=== PATIENT | female | born 1950 | race Caucasian/White ===

== ENCOUNTER 2019-11-22 20:04 | Emergency (ER) | payer MEDICARE, MEDICAID ==
[2019-11-22] MEDS ORDERED: Take Home: Acetaminophen/HYDROcodone 325-5 MG, 5 Tab Pack PO ONE (20:20)
--- NOTE | 2019-11-24 02:35 | EDM.PDOC ---
ED HPI GENERAL MEDICAL PROBLEM - General Chief Complaint: Lower Extremity Injury/Pain Stated Complaint: KNEE Time Seen by Provider: 11/22/19 20:04 Source of Information: Reports: Patient History Limitations: Reports: No Limitations - History of Present Illness INITIAL COMMENTS - FREE TEXT/NARRATIVE: Pt. presents to ER with complaints of non-traumatic R knee pain. Pt. states that she has a history of chronic knee pain in the past. She states that it has been getting worse over the past year and she associates the increased discomfort with her weigh gain. Again, she denies any trauma to the knee. She states that it was particularly bad this AM. She thinks she may have "overdone" it but denies any falls or other trauma. She states that the discomfort is located inferior to the patella. No numbness/ tingling in the distal portion of the extremity. No calf pain, duskiness, or pallor. Onset: Today Onset Date: 11/22/19 Location: Reports: Lower Extremity, Right Quality: Reports: Ache, Burning, Sharp, Stabbing, Throbbing Improves with: Reports: Rest Worsens with: Reports: Movement Context: Reports: Activity Right Knee Pain Score (Numeric/FACES): 7 - Related Data Allergies Allergy/AdvReac Type Severity Reaction Status Date / Time IV contrast Allergy Other Uncoded 11/22/19 20:20 Home Meds: Home Meds Aspirin 81 mg PO DAILY 11/22/19 [History] Furosemide [Lasix] 40 mg PO BID 11/22/19 [History] Lisinopril [Zestril] 20 mg PO DAILY 11/22/19 [History] predniSONE [Prednisone] 2.5 mg PO DAILY 11/22/19 [History] Past Medical History Cardiovascular History: Reports: Hypertension Other Musculoskeletal History: chronic knee pain Social & Family History - Tobacco Use Smoking Status *Q: Current Every Day Smoker Years of Tobacco use: 40 Packs/Tins Daily: 2 ED ROS GENERAL - Review of Systems Review Of Systems: Comprehensive ROS is negative, except as noted in HPI. ED EXAM, GENERAL - Physical Exam Exam: See Below Exam Limited By: No Limitations General Appearance: Alert, WD/WN, No Apparent Distress Extremities: Joint Swelling, Other (R knee is edematous. Pt. reports increased pain with manipulation of the lower leg. No erythema. No warmth. Pt. is obese. Unable to feel any obvious joint effusion. She does have some grading on manipuation of the knee. ) Course - Vital Signs Last Recorded V/S: Last Vital Signs Temp 36.6 C 11/22/19 20:10 Pulse 87 11/22/19 20:10 Resp 20 11/22/19 20:10 BP 190/63 H 11/22/19 20:10 Pulse Ox 97 11/22/19 20:10 - Orders/Labs/Meds Meds: Medications Discontinued Medications Generic Name Dose Route Start Last Admin Trade Name Laury PRN Reason Stop Dose Admin Hydrocodone Bitart/Acetaminophen 2 packet 11/22/19 20:20 11/22/19 20:33 Take Home: Acetam/Hydrocodon 325-5 Mg, 5 Pack PO 11/22/19 20:21 2 packet ONETIME ONE Administration Departure - Departure Time of Disposition: 20:35 Disposition: Home, Self-Care 01 Clinical Impression: Chronic knee pain - Discharge Information Instructions: Knee Pain, Adult Referrals: Gabbi Rosado MD [Primary Care Provider] - Forms: ED Department Discharge Additional Instructions: Follow-up with Dr. Rosado on Sunday for the knee pain. It sounds like you need a referral to orthopedics given the chronic nature of the pain. For now, take norco 5/325mg 1 tablet every 4-6 hours as needed for pain. Rest, ice, and elevation of your knee is helpful as well. Sepsis Event Note - Evaluation Sepsis Screening Result: No Definite Risk - Assessment/Plan Plan: No imaging was performed as there was no trauma and the pain has been present chronically for some time. She would benefit more from an MRI as opposed to radiographs. Follow-up with Dr. Rosado next week Orrum 5/325mg 1 tablet every 4-6 hours as needed for pain. Rest, ice, and elevation of your knee is helpful as well.
== END 2019-11-22 20:35 | disposition home or self-care (01) ==
LOC: VM.ED 20:04
DX: G89.29 Other chronic pain (principal); M25.561 Pain in right knee; F17.210 Nicotine dependence, cigarettes, uncomplicated; Z91.041 Radiographic dye allergy status; Z79.82 Long term (current) use of aspirin; Z79.899 Other long term (current) drug therapy
CPT/HCPCS: 99283; A9270

== ENCOUNTER 2020-02-19 14:34 | Inpatient (IN) | payer MEDICARE, MEDICAID ==
[2020-02-19] MEDS ORDERED: [UNRECOGNIZED DRUG - OTHER] PO PRN (16:05)
[2020-02-19] MEDS ORDERED: oxyCODONE 5 MG Tab PO PRN (16:05)
[2020-02-19] MEDS ORDERED: Ibuprofen 200 MG Tab PO PRN (16:05)
[2020-02-19] MEDS ORDERED: Furosemide 40 MG Tab PO SCH (16:30)
--- NOTE | 2020-02-19 16:36 | CR ---
[id number] RAD/RAD Chest PA or AP 1V EXAM: FRONTAL CHEST INDICATION: HYPOXEMIA. COMPARISON: July 15, 2018 CT. DISCUSSION: Soft tissue attenuation somewhat limits this assessment. The heart is mildly enlarged with early central vascular congestion most consistent with congestive heart failure. No effusions are seen. No focal airspace opacities. IMPRESSION: 1. Findings most consistent with mild congestive heart failure. Kendall Sales MD 02/19/20 [id number] Thank you for allowing us to participate in the care of your patient.
[2020-02-19] MEDS ORDERED: Furosemide 20 MG Tab PO ONE (16:45)
[2020-02-19] MEDS: Albuterol/Ipratropium 3.0-0.5 MG/3 ML Neb Soln NEB SCH ×2 (18:17→22:13)
[2020-02-19] MEDS: Nicotine 21 MG/24 Hr Patch TRDERM SCH (18:19)
[2020-02-19] MEDS: Furosemide 40 MG Tab PO SCH (18:21)
[2020-02-19] MEDS: Aspirin 325 MG Tab.EC PO SCH (19:27)
[2020-02-19] MEDS: Acetaminophen 500 MG Tab PO SCH (19:27)
--- NOTE | 2020-02-19 20:21 | HP ---
CHIEF COMPLAINT: Deconditioning. HISTORY OF PRESENT ILLNESS: The patient is a 70-year-old female who underwent an elective right knee replacement on 02/17/2020 for degenerative changes. Postoperatively, she was noted to have some mild low normal oxygen levels aggravated by her pain medicine. The patient is recommended to be on aspirin for a month for DVT prophylaxis. Apparently with transfer out of the hospital, she was discharged to swing bed, but confirmation had not been accepted here. However, the patient is a patient of mine and did know that she was going to be needing help. She has a difficult time with transitioning because of the pain from her right knee. She otherwise did not have any complications while hospitalized. MEDICATIONS: That she is currently on were prescribed nicotine lozenges, which she did not start, oxycodone 5 mg 1 pill every 4 hours as needed for pain, oxycodone 10 mg 1 every 4 hours for severe pain, Senna Plus 1 pill twice a day, acetaminophen 500 mg 2 pills 4 times a day, Centrum Silver 1 pill daily, furosemide 40 mg 1 pill a day, ibuprofen 200 mg every 4 hours as needed, lisinopril 20 mg 1 pill daily, Tylenol Cold and Flu 5/10/200/325 two tablets every 4 hours as needed. ALLERGIES: Contrast dye as well as seasonal allergies. PAST MEDICAL HISTORY: She has had hypertension, bilateral carotid artery stenosis, chronic allergic rhinitis. She has had hypertension. She has myasthenia gravis. She has had ptosis of her right eyelid. She has had COPD, poor dentition. She has retention cyst to her nasal cavity. She has had an elevated alkaline phosphatase. Osteoarthritis of both knees. She has had osteopenia, hyperglycemia, stress incontinence, grade 1 diastolic dysfunction, chronic right knee pain. Last echocardiogram was on 06/16/2019, which showed ejection fraction of 65%, grade 1 diastolic dysfunction. She has had depression after her son's in 2009. She has had overweight. PAST SURGICAL HISTORY: She has had an appendectomy, cholecystectomy, left shoulder repair, and right knee replacement. FAMILY MEDICAL HISTORY: Aunt does have paranoid schizophrenia. Mother has had dementia. Mother has had type 2 diabetes mellitus. Mother has had CHF. She has had kidney disease, cataracts, diabetes. Father had asthma and cataracts. Brother has had type 2 diabetes mellitus, myasthenia gravis, cataracts. Another brother with diabetes, hypertension, substance abuse. SOCIAL HISTORY: She is . She has a significant other. She works at the [employer]. She smokes a pack and a half a day of cigarettes. She does not consume alcohol. [place], [place]. 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 REVIEW OF SYSTEMS: The patient feels a little bit short of breath. She does have no chest pain. No sore throat. Bowels tend to work about every 4 days. No burning with urination. Her incision on her right knee is dressed with Aquacel dressing. No numbness or tingling of her feet. PHYSICAL EXAMINATION: Vital Signs: Temperature is 36.7, pulse is 102, blood pressure is 127/83, respirations 20, sats were 87% on 1 L. Skin: Somewhat dusky in appearance. HEENT: Her pupils equal and reactive to light. Pharynx: No injection. Neck: No anterior cervical adenopathy. HEART: Regular rate and rhythm. Lungs: Have diminished breath sounds. Abdomen: Obese, slightly distended. Extremities: Right knee is dressed with a dressing from surgery. She has minimal bruising around the edges. No erythema noted of her leg. No erythema of her foot or swelling of her foot. Neurologic: She is alert, questionably slightly confused. Skin; no bruising, pale. IMPRESSION: 1. Post right knee replacement. 2. Deconditioning due to knee surgery. 3. Hypoxemia. 4. Chronic obstructive pulmonary disease. 5. Hypertension. 6. Myasthenia gravis. 7. Degenerative joint disease of her left knee. 8. CHF, mild chronic diastolic. PLAN: The patient will be placed on swing bed for therapies. We will use oxycodone for p.r.n. pain control and scheduled Tylenol. She will be placed on Nicoderm patch to help with smoking cessation. Will offer her either DuoNebs or albuterol depending on cost coverage, which is better for the patient. Do anticipate her to be able to be discharged home hopefully within a week's time when she is up ambulating quite well. The patient is code level 1 status. For DVT prophylaxis, she is on a full-strength aspirin twice a day, so we will not place her on Lovenox or heparin. GM02/19/2020 16:16:40 MODL: 02/19/2020 19:58:25 /[id number] MTDD
[2020-02-19] MEDS: oxyCODONE 5 MG Tab PO PRN (22:23)
[2020-02-20] MEDS: Albuterol/Ipratropium 3.0-0.5 MG/3 ML Neb Soln NEB SCH ×3 (03:33→11:16)
[2020-02-20 07:14] LABS: ANION GAP 12.1 mmol/L (10-20); CHLORIDE,CL 104 mmol/L (98-107); SODIUM,NA 141 mmol/L (136-145)
[2020-02-20] MEDS ORDERED: Lisinopril 20 MG Tab PO SCH (08:00)
[2020-02-20] MEDS ORDERED: Potassium Chloride 10 MEQ Tab.ER PO SCH (08:30)
[2020-02-20] MEDS: Acetaminophen 500 MG Tab PO SCH ×4 (08:58→20:30)
[2020-02-20] MEDS: Multivitamins with Iron/Calcium/Folic Acid/Minerals Tab PO SCH (08:58)
[2020-02-20] MEDS: Aspirin 325 MG Tab.EC PO SCH ×2 (08:58→20:30)
[2020-02-20] MEDS: Lisinopril 20 MG Tab PO SCH (09:06)
[2020-02-20] MEDS: Furosemide 40 MG Tab PO SCH ×2 (09:06→16:52)
[2020-02-20] MEDS: Nicotine 21 MG/24 Hr Patch TRDERM SCH (09:11)
--- NOTE | 2020-02-20 09:11 | PN ---
Progress Note for HANNAH MCFARLAND Date: 02/20/2020 Room #: VM.202 This is the patient's second swing bed day of coming after a post knee surgery with deconditioning, pain. She is noted to be hypoxic when she came. Chest x- ray did show some left pleural effusion. She was maintained just on her regular Lasix. Additional Lasix was not given last night as it was not clear as to when she had had her last Lasix. This morning, she has not been up out of bed yet. She says her pain has been controlled with her oral meds. She comments that she believes that the DuoNebs may help her a little bit. OBJECTIVE: Vital Signs: Her weight has not been done today. Temperature is 36.5, pulse 73, blood pressure is 147/52, respiratory rate is 18, sats are 90% on 2 L. Heart: Regular rate and rhythm. Lungs: Some rare wheezes on left base. Abdomen: Soft. Extremities: Right knee is dressed with no peripheral edema. LABORATORY DATA: Today shows her hemoglobin is 11.7. Potassium is low at 3.1, sodium is 141, creatinine 0.8, BUN 11, GFR greater than 60, glucose 101, proBNP 448. Urinalysis came back normal other than 10-20 red blood cells. COVID test from [facility] came back negative this morning that was done yesterday. IMPRESSION: 1. Deconditioning post knee surgery. 2. Hypoxemia. 3. Congestive heart failure exacerbation. 4. Hypokalemia. 5. Chronic obstructive pulmonary disease. 6. Hypertension. 7. Anemia mild. PLAN: We will continue her same dose of Lasix right now. We will add potassium replacement. We will recheck a BMP tomorrow. She will receive physical therapy today. We did start DuoNebs yesterday to help with improved lung function and anticipate her to have PT/OT, hopefully a short term stay. Hopefully, anticipate weaning her off oxygen and to be able to go home early next week. GM02/20/2020 08:26:46 MODL: 02/20/2020 08:45:04 /[id number] BERNARDA
[2020-02-20] MEDS: COMBIVENT RESPIMAT INH SCH ×3 (12:32→20:30)
[2020-02-20] MEDS: oxyCODONE 5 MG Tab PO PRN (20:32)
[2020-02-21] MEDS: oxyCODONE 5 MG Tab PO PRN (01:07)
[2020-02-21 07:57] LABS: CHLORIDE,CL 102 mmol/L (98-107); SODIUM,NA 140 mmol/L (136-145)
[2020-02-21 07:58] LABS: ANION GAP 14.3 mmol/L (10-20)
[2020-02-21] MEDS: COMBIVENT RESPIMAT INH SCH ×4 (09:13→20:47)
[2020-02-21] MEDS: Furosemide 40 MG Tab PO SCH ×2 (09:14→15:59)
[2020-02-21] MEDS: Lisinopril 20 MG Tab PO SCH (09:15)
[2020-02-21] MEDS: Potassium Chloride 10 MEQ Tab.ER**PT OWN PO SCH (09:16)
[2020-02-21] MEDS: Multivitamins with Iron/Calcium/Folic Acid/Minerals Tab PO SCH (09:16)
[2020-02-21] MEDS: Aspirin 325 MG Tab.EC PO SCH ×2 (09:17→20:45)
[2020-02-21] MEDS: Acetaminophen 500 MG Tab PO SCH ×4 (09:17→20:45)
--- NOTE | 2020-02-21 10:28 | PCM.PN ---
- General Info Date of Service: 02/21/20 Subjective Update: Subjective: Patient states that her knee is somewhat painful but her pain is under control. She has no other complaints - Patient Data Vitals - Most Recent: Last Vital Signs Temp 98.2 F 02/21/20 05:17 Pulse 84 02/21/20 05:17 Resp 17 02/21/20 05:17 BP 162/60 H 02/21/20 09:15 Pulse Ox 93 L 02/21/20 05:17 Weight - Most Recent: 196 lb 12.8 oz I&O - Last 24 Hours: Intake & Output 02/20/20 02/21/20 02/21/20 22:59 06:59 14:59 Intake Total 120 400 480 Output Total 200 0 Balance -80 400 480 Lab Results Last 24 Hours: Laboratory Results - last 24 hr 02/21/20 Range/Units 07:36 Sodium 140 (136-145) mmol/L Potassium 3.3 L (3.5-5.1) mmol/L Chloride 102 (98-107) mmol/L Carbon Dioxide 27 (21-32) mmol/L Anion Gap 14.3 (10-20) mmol/L BUN 12 (7-18) mg/dL Creatinine 0.8 (0.55-1.02) mg/dL Est Cr Clr Drug Dosing 47.67 mL/min Estimated GFR (MDRD) > 60 Glucose 108 H (74-106) mg/dL Calcium 8.9 (8.5-10.1) mg/dL Med Orders - Current: Current Medications Acetaminophen (Tylenol Extra Strength) 1,000 mg PO QID [facility] Last Admin: 02/21/20 09:17 Dose: 1,000 mg Aspirin (Aspirin) 81 mg PO DAILY [facility] Aspirin (Ecotrin) 325 mg PO BID [facility] Last Admin: 02/21/20 09:17 Dose: 325 mg Furosemide (Lasix) 40 mg PO BIDDIURETIC [facility] Last Admin: 02/21/20 09:14 Dose: 40 mg Ibuprofen (Motrin) 200 mg PO Q4HR PRN PRN Reason: Pain Lisinopril (Prinivil) 20 mg PO DAILY [facility] Last Admin: 02/21/20 09:15 Dose: 20 mg Multivitamins/Minerals (Thera M Plus) 1 tab PO DAILY [facility] Last Admin: 02/21/20 09:16 Dose: 1 tab Combivent Respimat (InhalerOwn Med) 0 each INH QID [facility] Last Admin: 02/21/20 09:13 Dose: 1 each Oxycodone HCl (Oxycodone) 5 mg PO Q4HR PRN PRN Reason: Pain (moderate 4-6) Last Admin: 02/21/20 01:07 Dose: 5 mg Potassium Chloride (Klor-Con 10) 10 meq PO DAILY [facility] Last Admin: 02/21/20 09:16 Dose: 10 meq Senna/Docusate Sodium (Senna Plus) 1 tab PO BID [facility] Last Admin: 02/21/20 09:17 Dose: 1 tab Discontinued Medications Albuterol/Ipratropium (Duoneb 3.0-0.5 Mg/3 Ml) 3 ml NEB Q4HRRT [facility] Last Admin: 02/20/20 11:16 Dose: Not Given Furosemide (Lasix) 40 mg PO BIDDIURETIC [facility] Last Admin: 02/19/20 18:56 Dose: Not Given Furosemide (Lasix) 20 mg PO ONETIME ONE Stop: 02/19/20 16:46 Last Admin: 02/19/20 18:05 Dose: Not Given Lisinopril (Prinivil) 20 mg PO DAILY [facility] Nicotine (Habitrol) 21 mg TRDERM DAILY [facility] Last Admin: 02/20/20 09:11 Dose: Not Given Non-Formulary Medication (Phenylephrine/Dm/Acetaminop/Gg [Tylenol Cold-Flu Severe Caplet]) 2 tab PO Q4HR PRN PRN Reason: Allergies Oxycodone HCl (Oxycodone) 5 mg PO Q4HR PRN PRN Reason: Pain (moderate 4-6) Potassium Chloride (Klor-Con 10) 10 meq PO DAILY [facility] Last Admin: 02/20/20 08:58 Dose: 10 meq - Exam General: Alert, Oriented, Cooperative Lungs: Clear to Auscultation, Other (acCording to nurse, O2 sat 95% on room air) Extremities: Other (Left without edema . Right knee incision w/o induration, pus redness) Sepsis Event Note - Evaluation Sepsis Screening Result: No Definite Risk - Focused Exam Vital Signs: Vital Signs Temp Pulse Resp BP BP Pulse Ox 02/21/20 09:15 162/60 H 02/21/20 05:17 98.2 F 84 17 162/60 H 93 L Date Exam was Performed: 02/21/20 Time Exam was Performed: 10:22 - Problem List Review Problem List Initiated/Reviewed/Updated: Yes - Assessment Assessment:: 1. Hypoxia: resolving 2. Hypokalemia: resolving: continue K + po 3. HTN: Has been consistently elevated 148-160 systolic: add amlodipne 5 mg daily 4. Pain control: pain uner controll: d/c Motrin as pt is already on ecotrin bid
[2020-02-21] MEDS: amLODIPine 5 MG Tab PO SCH (11:47)
[2020-02-22] MEDS: Lisinopril 20 MG Tab PO SCH (08:07)
[2020-02-22] MEDS: Furosemide 40 MG Tab PO SCH ×2 (08:07→15:31)
[2020-02-22] MEDS: amLODIPine 5 MG Tab PO SCH (08:07)
[2020-02-22] MEDS: COMBIVENT RESPIMAT INH SCH ×3 (08:07→15:31)
[2020-02-22] MEDS: Potassium Chloride 10 MEQ Tab.ER**PT OWN PO SCH (08:07)
[2020-02-22] MEDS: Aspirin 325 MG Tab.EC PO SCH ×2 (08:08→20:38)
[2020-02-22] MEDS: Acetaminophen 500 MG Tab PO SCH ×4 (08:08→20:37)
[2020-02-22] MEDS: Multivitamins with Iron/Calcium/Folic Acid/Minerals Tab PO SCH (08:08)
[2020-02-22] MEDS ORDERED: Potassium Chloride 10 MEQ Tab.ER PO ONE (10:46)
--- NOTE | 2020-02-22 11:04 | PCM.SN.2 ---
- Free Text/Narrative Note: S: Pt has no complaints; She is noted to have frequent coughing but she says this is chronic. She has a little clear sputum now suince surgery O: Pt in NAD Lungs clear BP 155/60 no edema Cor: s1s2 normal w/o rubs,murmurs or gallops Potassium 3.1 IMP 1.Hypokalemia: from diuretics- extra dose of K today, check K and Mg in AM 2.COPD: Pt enc to stay off cigarettes 3. HTN: still not at target, received first dose of amlodipine today w/o difficulty
[2020-02-23] MEDS: COMBIVENT RESPIMAT INH SCH ×5 (07:17→19:27)
[2020-02-23] MEDS ORDERED: Potassium Chloride 10 MEQ Tab.ER PO ONE (08:14)
[2020-02-23] MEDS: Potassium Chloride 10 MEQ Tab.ER**PT OWN PO SCH (08:37)
[2020-02-23] MEDS: Acetaminophen 500 MG Tab PO SCH ×4 (09:02→19:27)
[2020-02-23] MEDS: amLODIPine 5 MG Tab PO SCH (09:03)
[2020-02-23] MEDS: Aspirin 325 MG Tab.EC PO SCH ×2 (09:03→19:27)
[2020-02-23] MEDS: Multivitamins with Iron/Calcium/Folic Acid/Minerals Tab PO SCH (09:03)
[2020-02-23] MEDS: POTASSIUM CHLORIDE 10 MEQ PO SCH (09:04)
[2020-02-23] MEDS: Furosemide 40 MG Tab PO SCH ×2 (09:05→16:31)
[2020-02-23] MEDS: Lisinopril 20 MG Tab PO SCH (09:05)
--- NOTE | 2020-02-23 09:09 | CR ---
[id number] RAD/RAD Chest PA And Lateral EXAM: RAD Chest PA And Lateral INDICATION: CONGESTIVE HEART FAILURE FOLLOW-UP. COMPARISON: February 19, 2020. DISCUSSION: Cardiomediastinal silhouette is normal in size and contour. No infiltrate, effusion, pneumothorax, or edema. IMPRESSION: No acute cardiopulmonary abnormality. Matt Escoto DO 02/23/20 0908 Thank you for allowing us to participate in the care of your patient.
--- NOTE | 2020-02-23 12:38 | PN ---
Progress Note for HANNAH MCFARLAND Date: 02/23/2020 Room #: VM.202 SUBJECTIVE: This is the patient's 5th swing bed day of recovering from her knee surgery. Her hypoxemia gotten much better as well as her low potassiums have been improving. She has worked with therapy 2 days now and is waiting to get stronger. She has not needed as the oxygen like she had been. OBJECTIVE: Vital Signs: Her weight 87.8 kg which is down 5 kg from admission, her blood pressure is 162/73, pulse is 98, sats are 95% on room air, and respiratory rate 18. Heart: Regular rate. Lungs: Have rare inspiratory crackle on right base. Abdomen: Soft. Extremities: Lower extremities, no edema. Right knee is wrapped with surgical dressing. LABORATORY DATA: Shows her potassium was up to 3.4 yesterday. Her proBNP on the was 448. Hemoglobin had been 11.7 on 02/19. IMPRESSION: 1. Deconditioning post right knee surgery. 2. Hypokalemia, improving. 3. Hypertension, slightly improving. 4. Hypoxemia, improving. 5. Chronic obstructive pulmonary disease. 6. Congestive heart failure exacerbation. PLAN: We will have the patient work with therapies. Today, we will increase her oral potassium to 20 mEq daily. We will repeat lab work on the as it is not certain as to when she will be ready to go home. We will continue the Combivent and Respimat. She had just been placed on the Norvas for blood pressure control, so we will continue that same dose even though she is not at optimal control yet. GM02/23/2020 08:20:05 MODL: 02/23/2020 09:15:43 /[id number] [email or web address]
[2020-02-24] MEDS: oxyCODONE 5 MG Tab PO PRN (01:33)
[2020-02-24] MEDS: Acetaminophen 500 MG Tab PO SCH ×4 (08:05→20:44)
[2020-02-24] MEDS: Multivitamins with Iron/Calcium/Folic Acid/Minerals Tab PO SCH (08:09)
[2020-02-24] MEDS: Aspirin 325 MG Tab.EC PO SCH ×2 (08:09→20:44)
[2020-02-24] MEDS: Lisinopril 20 MG Tab PO SCH (08:10)
[2020-02-24] MEDS: Furosemide 40 MG Tab PO SCH ×2 (08:10→17:44)
[2020-02-24] MEDS: POTASSIUM CHLORIDE 10 MEQ PO SCH (08:11)
[2020-02-24] MEDS: amLODIPine 5 MG Tab (OWN SUPPLY) PO SCH (08:11)
[2020-02-24] MEDS: COMBIVENT RESPIMAT INH SCH ×4 (08:12→20:44)
[2020-02-24 13:44] LABS: CHLORIDE,CL 103 mmol/L (98-107); SODIUM,NA 140 mmol/L (136-145)
[2020-02-24 13:49] LABS: ANION GAP 13.6 mmol/L (10-20)
--- NOTE | 2020-02-24 19:49 | PN ---
Progress Note for HANNAH MCFARLAND Date: 02/24/2020 Room #: VM.202 SUBJECTIVE: The patient is progressing nicely with physical therapy and is eager for discharge home tomorrow. She does not want home health services. She did have some pain during the night and did require oxycodone to help with that discomfort. OBJECTIVE: Vital Signs: Her vital signs show that her weight today is 91.5, which is up 3 kg from the other day approximately. Her blood pressure is 150/72, pulse 91, saturations are 93% on room air, respiratory rate 18. HEART: Regular rate and rhythm. LUNGS: Clear to auscultation. ABDOMEN: Soft. EXTREMITIES: Right lower leg has no swelling. Her knee has dressing on it. LABORATORY DATA: Her lab today came back with her white blood cell count 11.1, hemoglobin 12.6. Sodium 140, potassium 3.6, creatinine 0.9, GFR greater than 60. Glucose 121, nonfasting. ProBNP 83. IMPRESSION: 1. Deconditioning status post right knee surgery. 2. Hypertension. 3. Anemia, improved. 4. Hypoxemia, improved. 5. Chronic obstructive pulmonary disease. 6. Hypokalemia. PLAN: The patient will have a plan set up for discharge for tomorrow. I am gone, so I will make arrangements today. Please refer to discharge summary for discharge directions. GM02/24/2020 17:21:07 MODL: 02/24/2020 17:47:05 /[id number]
--- NOTE | 2020-02-25 00:35 | DISCH ---
PRIMARY DIAGNOSES: 1. Deconditioning post right knee replacement surgery. 2. Hypokalemia. 3. Hypertension. 4. Hypoxemia, which is improved. 5. Chronic obstructive pulmonary disease. 6. Congestive heart failure, chronic with mild exacerbation. 7. Myasthenia gravis. 8. Tobacco use disorder. SUMMARY OF ADMIT H AND P: The patient is a 70-year-old female who underwent elective right knee surgery at [facility] on 02/17/2020. She was discharged home on 02/19/2020. However, she was not able to manage at home, so arrangements were made for her to come to swing bed that afternoon. By the time she got here, she was noted to be quite hypoxic with her sats around 87% on 1 L, and she was having fairly significant pain. Her knee had a dressing on it. It was not swollen. She was placed on aspirin 325 b.i.d. for DVT prophylaxis for a month. SUMMARY OF HOSPITAL COURSE: She had lab work done on 02/19/2020 to do a urine, which was normal other than 10-20 red blood cells. Lab work on 02/20/2020 showed her potassium was 3.1, sodium 141, creatinine 0.8, GFR greater than 60. ProBNP elevated at 448. Hemoglobin 11.9, white blood cell count 9.9. The patient was resumed on her usual diuretics and she was given oral potassium replacement. Chest x-ray did show some pleural effusion on the left base. The patient received physical therapy and occupational therapy. It was noted that her potassium slowly improved to 3.3 and was back down to 3.1, so her oral potassium had to be increased. To improve her oxygen saturations, she was started initially on DuoNebs and then switched over to a Combivent Respimat. She declined wanting to have any nicotine replacement system while she was in the hospital. The patient's magnesium level was checked. It was normal at 2.0 on 02/23/2020. By 02/24/2020, her hemoglobin was up to 12.6, white blood cell count 11.1, platelets 309, neutrophils 50, bands 1, lymphocytes 41. Sodium 140, potassium 3.6, creatinine 0.9, GFR greater than 60, glucose 121. ProBNP was 83. A chest x-ray was repeated on 02/23/2020, which showed resolution of pleural effusions. A [id number] exam was done today on 02/24/2020 for the patient for need for home health. The patient is homebound due to knee surgery with need for walker. She cannot walk further than 20 feet without severe exhaustion. She would depend on others for transportation to come to the clinic. The patient is a fall risk. The patient will need to have nursing to assess her blood pressure as well as physical therapy and occupational therapy. I will be the one monitoring her progress with home health. The patient selects [facility] for Services. MEDICATIONS AT DISCHARGE: Aspirin 81 mg 1 pill daily, lisinopril 20 mg 1 pill daily, furosemide 40 mg 1 p.o. b.i.d., aspirin 325 one p.o. b.i.d. I believe for a month, Tylenol 1000 mg 4 times a day, oxycodone 5 mg every 4 hours p.r.n., Senna Plus 1 pill twice a day, ibuprofen 200 mg every 4 hours as needed, multivitamin 1 pill daily, her Tylenol Cold and Flu capsule 2 capsules every 4 hours as needed, amlodipine 5 mg 1 pill daily, potassium chloride 10 mEq 2 pills daily, Combivent Respimat 1 puff 4 times a day. PLAN: The patient has a current Aquacel dressing on her knee that was placed on 02/24/2020, which should stay on for 7 days, so can be changed at her ortho appointment on 03/02/2020. The patient will follow up to see me in the clinic in 3 weeks' time. She was offered referral to [place] [facility]. She declined that. She was encouraged not to resume smoking once going home. The patient is not felt to need home oxygen. However, that will be something that the home health nurses can also help monitor as well as her weights for her CHF. To note at discharge, the patient is code level 1 status. Activity per recommendations from Physical Therapy as well as Orthopedic Surgery. She will be using a walker initially at discharge home. GM02/24/2020 17:28:27 MODL: 02/25/2020 00:11:37 /[id number]
[2020-02-25] MEDS: Lisinopril 20 MG Tab PO SCH (08:33)
[2020-02-25] MEDS: Acetaminophen 500 MG Tab PO SCH (08:33)
[2020-02-25] MEDS: Furosemide 40 MG Tab PO SCH (08:33)
[2020-02-25] MEDS: Aspirin 325 MG Tab.EC PO SCH (08:33)
[2020-02-25] MEDS: POTASSIUM CHLORIDE 10 MEQ PO SCH (08:33)
[2020-02-25] MEDS: Multivitamins with Iron/Calcium/Folic Acid/Minerals Tab PO SCH (08:33)
[2020-02-25] MEDS: amLODIPine 5 MG Tab (OWN SUPPLY) PO SCH (08:34)
[2020-02-25] MEDS: COMBIVENT RESPIMAT INH SCH (10:07)
[2020-03-20] MEDS ORDERED: Aspirin 81 MG Tab.Chew PO SCH (08:00)
== END 2020-02-25 10:15 | disposition home health service (06) | DRG 559 ==
LOC: VM.MS 15:20
PROVIDERS: ADMIT Family Medicine; ATTEND Family Medicine
DX: Z47.1 Aftercare following joint replacement surgery (principal); I50.33 Acute on chronic diastolic (congestive) heart failure; Z96.651 Presence of right artificial knee joint; E87.6 Hypokalemia; J44.9 Chronic obstructive pulmonary disease, unspecified; E05.00 Thyrotoxicosis with diffuse goiter without thyrotoxic crisis or storm; F32.9 Major depressive disorder, single episode, unspecified; D64.9 Anemia, unspecified; Z91.041 Radiographic dye allergy status; Z90.49 Acquired absence of other specified parts of digestive tract
CPT/HCPCS: 36415; 71045; 71046; 80048; 81001; 83735; 83880; 84132; 85025; 94640; 97110-GP; 97116-GP; 97161-GP; 97165-GO; 97530-GP; 97535-GO; A9270-GY; J7620-GY

== ENCOUNTER 2020-12-25 11:41 | Inpatient (IN) | payer MEDICAID, MEDICARE ==
[2020-12-25] MEDS ORDERED: Cyclobenzaprine 10 MG Tab PO PRN (12:40)
[2020-12-25] MEDS ORDERED: ALBUTEROL INH PRN (12:41)
[2020-12-25] MEDS ORDERED: [UNRECOGNIZED DRUG - OTHER] PO PRN (12:41)
[2020-12-25] MEDS ORDERED: Acetaminophen/HYDROcodone 325-5 MG Tab PO PRN (12:41)
[2020-12-25] MEDS ORDERED: Menthol/Methyl Salicylate 85 GM Tube TOP PRN (12:41)
[2020-12-25] MEDS ORDERED: IPRATROPIUM INH PRN (12:41)
--- NOTE | 2020-12-25 14:47 | HP ---
CHIEF COMPLAINT: A left knee replacement. HISTORY OF PRESENT ILLNESS: This is a 70-year-old female who went in and had her left knee electively replaced on the and is ready for discharge home, however, is unable to complete ADLs, living independently, so is admitted for swing bed cares. The patient had an uneventful postoperative course. She has not had a bowel movement yet, but upon arriving to [place], she had severe cramps and spasms in her left calf and the left thigh. The patient is on narcotic pain pills but had not tried any muscle relaxants. ALLERGIES: Her allergies are statins, pollens, and IV contrast. MEDICATIONS: Her current medication list from discharge is reviewed. She is on 325 b.i.d. of aspirin for 1 month, then 81 mg daily. She is on Tylenol for pain. Combivent inhaler, docusate 100 b.i.d., furosemide 20 every 48 hours, hydrocodone 1 to 2 q.6 hours p.r.n. for pain, lisinopril 20 mg daily, Icy Hot, and multivitamin. PAST MEDICAL HISTORY: Includes diastolic heart failure, essential hypertension, COPD, obesity, osteoarthritis with a previous right knee replacement, myasthenia gravis in remission, chronic allergic rhinitis, mixed urinary incontinence, emphysema, and peripheral vascular disease with carotid artery stenosis but no history of stroke. PAST SURGICAL HISTORY: Again, the patient has had that right knee replaced, appendectomy, cholecystectomy, and shoulder surgery. FAMILY HISTORY: She had dementia, diabetes, heart disease, and kidney disease in her mother. Both parents are . Her brother is listed also to have diabetes and hypertension. SOCIAL HISTORY: She is . She lives at home independently. She smokes. No alcohol. REVIEW OF SYSTEMS: General: No fever or chills. No weight changes. HEENT: No trouble swallowing. Cardiac: No chest pain. No palpitations. Respiratory: No cough, no shortness of breath, although it was listed, she had some lower O2 saturations like in the 80s in [place] after surgery. Gastrointestinal: No abdominal pain, nausea, vomiting, or diarrhea. Genitourinary: No dysuria. Mental Status and Neurologic: No confusion. Otherwise, all systems reviewed and found to be negative unless otherwise stated. PHYSICAL EXAMINATION: Vital Signs: Temperature 99.7, pulse 97, blood pressure 147/106, respiratory rate 20, and O2 of 92 on room air. General: She is in no acute distress. Heart: Regular rate and rhythm. S1, S2 without murmur. Lungs: Lung sounds are clear to auscultation bilaterally without crackles or wheezes. Abdomen: Has positive bowel sounds. Soft, nondistended, and nontender. Extremities: Warm and dry. She does have edema over that left leg. The entire leg is sore, slight spasm noted in the thigh and then in the lower calf area. There is some redness. However, when I examine her foot too, there is still some orange dye left over from surgery. Her leg is warm. She has 2+ dorsal pedis pulses. She has good range of motion. She has incision in place with just slight drainage. I did not undo her entire dressing. Mental Status: She is alert and orientated x3. LABORATORY WORK: Reviewed from today. Hemoglobin 12.1 and glucose 135, otherwise, her electrolytes and kidney function were all normal. COVID negative. ASSESSMENT: 1. Postoperative day 2 from a left knee replacement. 2. Essential hypertension, currently elevated on admission but likely due to pain. 3. Left leg pain. She has had muscle spasms. It just started upon arrival. She did have some extensive physical therapy work this morning. 4. Smoking. Nicotine patch available if needed. 5. Chronic diastolic heart failure. She is on Lasix. 6. Emphysema. We will encourage incentive spirometry. 7. Obesity. 8. Myasthenia gravis, in remission. PLAN: At this point, the patient is to continue on swing bed cares. We will get her up and working with therapies on Sunday. We will hold off on any further lab work, but if spasms continue, I will repeat electrolytes and magnesium. I will empirically put her on magnesium, and I will add Flexeril to her pain regimen. For DVT prophylaxis, she is on aspirin. She is a code level 1. MKA: 12/25/2020 13:49:39 MODL: 12/25/2020 14:41:53 /[id number]
[2020-12-25] MEDS: Magnesium Oxide 400 MG Tab PO SCH ×2 (17:26→20:12)
[2020-12-25] MEDS: Acetaminophen/HYDROcodone 325-5 MG Tab **OWN MED PO PRN ×2 (17:51→21:28)
[2020-12-25] MEDS: Acetaminophen 500 MG Tab PO SCH (20:11)
[2020-12-25] MEDS: Docusate Sodium 100 MG Cap PO SCH (20:11)
[2020-12-25] MEDS: Aspirin 325 MG Tab.EC PO SCH (20:12)
[2020-12-26] MEDS: Acetaminophen/HYDROcodone 325-5 MG Tab **OWN MED PO PRN (07:40)
[2020-12-26] MEDS: Magnesium Oxide 400 MG Tab PO SCH (07:41)
[2020-12-26] MEDS: Docusate Sodium 100 MG Cap PO SCH (07:41)
[2020-12-26] MEDS: Acetaminophen 500 MG Tab PO SCH (07:41)
[2020-12-26] MEDS: Aspirin 325 MG Tab.EC PO SCH (07:41)
[2020-12-26] MEDS ORDERED: Multivitamins with Iron/Calcium/Folic Acid/Minerals Tab PO SCH (08:00)
[2020-12-26] MEDS ORDERED: Lisinopril 20 MG Tab **OWN MED PO SCH (08:00)
[2020-12-26] MEDS ORDERED: Furosemide 40 MG Tab PO SCH (10:45)
[2020-12-27] MEDS ORDERED: Furosemide 40 MG Tab **OWN MED PO SCH (08:00)
--- OUTSIDE RECORDS SUMMARY | 2020-12-27 09:21 | XMSREPORT ---
:1950 Author Organization [facility] s Address [address] [place] [address] [address] [place] [address] Care Team Providers Name Role Phone DO Jesse Primary Care Provider DO Jesse Attributed Provider Reason for Visit Auth/Cert (Routine) Status Reason Specialty Diagnoses / Referred By Referred To Procedures Contact Contact Continuity of Care Diagnoses Unilateral primary osteoarthritis, left knee Mitch Hernandez Procedures ARTHROPLASTY KNEE CONDYLE & PLATEAU MEDIAL & [place] [address] [place] [address] Encounter Details Date Type Department Care Team Description 12/24/2020 - Hospital Encounter [facility] Mitch Hernandez Arthr itis of knee, 12/25/2020 [place] [place] Barnes [place] left [address] [place] [address] [place] [address] [phone] Allergies Active Allergy Reactions Severity Noted Date Comments Diagnostic X-Ray Other (Specify in 06/07/2018 Daniels w arm heart racing Materials Comments) Seasonal Other (Specify in 06/07/2018 Itchy eyes , nasal Comments) drainage Hmg-Coa-R Inhibitors Other (Specify in 04/30/2020 [place] [facility] Myasthenia gravis Comments) so this is contraindicated . documented as of this encounter (statuses as of 12/25/2020) Medications Medication Sig Dispensed Refills Start End Date Status Date NDCTNSxtytdcl-YL-u Take 2 tablets 0 Active uaiFENesin-acetami by mouth Every 8 nophen (TYLENOL 4 hours as COLD/FLU SEVERE) needed for 5-93-435-325 MG other (Specify) tabletIndications: (allergies) Chronic allergic rhinitis Multiple Take 1 tablet 0 Active Vitamins-Minerals by mouth 1 time (CENTRUM SILVER per day ULTRA WOMENS PO) acetaminophen Take 2 tablets 100 tablet 0 Active (TYLENOL) 500 mg (1,000 mg) by 0 tabletIndications: mouth 4 times a Status post total day right knee replacement Menthol-Methyl Apply topically 0 Active Salicylate (ARTHRITIS HOT) 10-15 % CREA HYDROcodone-acetam Take 1-2 20 tablet 0 A ctive inophen (NORCO) tablets by 1 5-325 mg mouth every 6 tabletIndications: hours as needed Status post total for moderate left knee pain or severe replacement pain aspirin 325 MG Take 1 tablet 60 tablet 0 01/25/20 A ctive enteric coated (325 mg) by 1 21 tabletIndications: mouth 2 times a Status post total day left knee replacement aspirin 81 mg Take 1 tablet 30 tablet 0 Ac tive enteric coated (81 mg) by 1 tabletIndications: mouth 1 time Bilateral carotid per day Start artery stenosis after completing one month course of twice daily aspirin 325 mg albuterol-ipratrop Inhale 1 puff 4 g 0 Active ium (COMBIVENT orally Every 4 1 RESPIMAT) 20-100 hours as needed MCG/ACT for shortness inhalerIndications of breath or : Panlobular wheezing emphysema (HCC) lisinopril Take 1 tablet 90 tablet 0 Activ e (PRINIVIL, (20 mg) by 1 ZESTRIL) 20 mg mouth 1 time tabletIndications: per day Essential hypertension furosemide (LASIX) Take 0.5 45 tablet 4 12/31/19 A ctive 40 mg tablets (20 mg) 1 22 tabletIndications: by mouth Every Edema, peripheral other day docusate sodium Take 1 capsule 60 capsule 0 01/25/20 Active (COLACE) 100 MG (100 mg) by 1 21 capsuleIndications mouth 2 times a : Status post day Hold for total left knee >2-3 BMs per replacement day or 4 loose stools ibuprofen Take 200 mg by 0 12/26/19 Disco ntinued (ADVIL;MOTRIN-IB) mouth Every 4 21 (Stop Taking at 200 mg tablet hours as needed Discharge) aspirin 81 mg Take 1 tablet 30 tablet 0 12/26/19 Di scontinued enteric coated (81 mg) by 0 21 (Reo rder) tabletIndications: mouth 1 time Bilateral carotid per day Start artery stenosis after completing one month course of twice daily aspirin 325 mg lisinopril Take 1 tablet 90 tablet 3 12/26/19 Disco ntinued (PRINIVIL, (20 mg) by 0 21 (Reorder ) ZESTRIL) 20 mg mouth 1 time tabletIndications: per day Essential hypertension albuterol-ipratrop Inhale 1 puff 1 Inhaler 3 0 Discontinued ium (COMBIVENT orally every 4 0 21 (Reorder) RESPIMAT) 20-100 to 6 hours as MCG/ACT needed for inhalerIndications wheezing : Panlobular emphysema (HCC) furosemide (LASIX) Take 0.5 45 tablet 4 12/26/19 D iscontinued 40 mg tablets (20 mg) 0 21 (Reo rder) tabletIndications: by mouth Every Edema, peripheral other day documented as of this encounter (statuses as of 12/25/2020) Active Problems Problem Noted Date Hypokalemia 02/20/2020 S/P TKR (total knee replacement), right 02/19/2020 Chronic pain of right knee 02/05/2020 Encounter for screening for lung cancer 07/31/2019 Overview: 07/31/19 CT lung no nodules, There is e mphysema noted. CT in 1 yr. Grade I diastolic dysfunction 06/16/2019 Overview: 06/16/19 EF 65%, Grade I diastolic dysfn, minimal valve disease, lipomatous septal hypertrophy. Shortness of breath 06/03/2019 Edema, peripheral 06/03/2019 Mixed stress and urge urinary incontinence 03/17/2019 Overview: Remote stricture dilation and left with residual incontinence. Hyperglycemia 09/13/2018 Overview: 09/13/18 at 128 random Osteopenia of multiple sites 08/15/2018 Overview: 08/15/2018 DEXA T score lumbar spine is 1.0 and hip is -1.3. Next DEXA in 3 yrs.03/18/19 changed to 2 yr DEXA due to prednisone use. Strain of left knee 07/29/2018 Acute pain of left knee 07/22/2018 Mammogram declined 07/15/2018 Overview: 07/15/2018 Primary osteoarthritis involving multiple joints 07/15 Retention cyst of nasal cavity 06/10/2018 Overview: CT done on 06/10/2018 , at [facility] and read by [place] radiologists showed left maxillary sinus large mucosa l retention cyst. Chronic allergic rhinitis 06/07/2018 Myasthenia gravis 06/07/2018 Overview: 06/07/2018 noted, has droppy right eyelid , brother with Myasthenia gravis. 06/23/2018 pos acetylchol ATB at 0.76, referral to ophth. Bilateral carotid artery stenosis 06/07/2018 Overview: 06/07/2018 noted bruits. US 07/03/18 mil d bilateral carotid stenosis, next US in 1 yr. 06/02/20 US mild bilateral stenosis. Next US in 2 yrs. Ptosis of right eyelid 06/07/2018 Overview: 06/07/[address] done on 06/10/2018 , at [facility] and read by [place] radiologists,humera back showing mild to moderate chronic small vessel ischemic changes. Poor dentition 06/07/2018 Alkaline phosphatase elevation 06/07/2018 Overview: 06/07/2018 elevated at 131. High risk medication use 11/26/2009 Overweight 11/26/2009 Essential hypertension 10/29/2009 Overview: 2009 was on Lisinopril/HCTZ and then top rol. Pt stopped med in 2010. 2018 placed on Lisinopril Tobacco use disorder Panlobular emphysema Overview: From allergies and smoking, Peak flow 2 70 on 06/14/2018. 07/31/19 CT lung no nodules, There is emphysema noted. documented as of this encounter (statuses as of 12/25/2020) Resolved Problems Problem Noted Date Resolved Date Major depressive disorder with single episode, in full 10/2906/07/2018 remission Overview: Had been on Paxil after son's in 2 010. documented as of this encounter (statuses as of 12/25/2020) Social History Tobacco Use Types Packs/Day Years Used Date Current Every Day Smoker Cigarettes 1.5 45 Sta rted: 09/10/1969 Smokeless Tobacco: Never Used Comments: 07/02/20 smoking about 1 to 1. 5 pk per day Alcohol Use Drinks/Week oz/Week Comments No occasional Alcohol Habits Answer Date Recorded How often do you have a drink containing alcohol? Never 10/11/2018 How many drinks containing alcohol do you have on a typical Not asked day when you are drinking? How often do you have six or more drinks on one occasion? No t asked Sex Assigned at Date Recorded Not on file documented as of this encounter Last Filed Vital Signs Vital Sign Reading Time Taken Comments Blood Pressure 169/77 12/25/2020 9:53 AM CDT Pulse 88 12/25/2020 9:53 AM CDT Temperature 37 C (98.6 F) 12/25/2020 7:30 AM CDT Respiratory Rate 18 12/25/2020 9:53 AM CDT Oxygen Saturation 88% 12/25/2020 9:[address] Villa aware CDT Inhaled Oxygen Concentration - - Weight 89.1 kg (196 lb 6.9 12/24/2020 7:33 AM oz) CDT Height 147.3 cm (4' 10") 12/24/2020 8:27 AM CDT Body Mass Index 41.05 12/24/2020 7:33 AM CDT documented in this encounter Functional Status Functional Status Response Date of Assessment Is the person deaf or does he/she have serious difficulty No 02/11/2020 hearing? Is this person blind or does he/she have difficulty No 02/11/2020 seeing even when wearing glasses? Do you have difficulty with walking, balance, climbing No 02/11/2020 stairs, or had a fall in the last 3 months? Does the patient have difficulty dressing or bathing? No 02/11/2020 Because of a physical, mental, or emotional condition; No 02/11/2020 does this person have difficulty doing errands alone such as visiting a doctor's office or shopping? Cognitive Status Response Date of Assessment Because of a physical, mental, or emotional condition; No 02/11/2020 does this person have serious difficulty concentrating, remembering, or making decisions? documented as of this encounter Discharge Summaries Lakshmi Taylor MD - 12/25/2020 9:31 AM CDT Discharge Summary Patient ID: Loretta Sarmiento is a 70yr female. Attending Physician: Mitch Hernandez MD Discharging Provider Specialty: Orthopedic Surgery Admit Date: 12/24/2020 Discharge Date: 12/25/2020 Primary Care Physician: Bernadette Molina DO Code Status: No Order Discharge Diagnoses # Status post left total knee arthroplasty # Hypertension # Panlobular emphysema # History of myasthenia gravisno current medications # Peripheral vascular disease with bilateral carotid artery stenosis # Nicotine dependence # Morbid obesity Hospital Course Loretta Sarmiento was admitted under the orthopedic service status post left total knee arthroplasty on 12/24/2020. Spinal anesthesia with adductor canal block. Estimated blood loss 150 mL. Patient tolerated the procedure and anesthesia without any intra-operative complications. Internal medicine followed patient postoperatively for medical management. See admission H&P, internal medicine consult note, and operative report for further details. On POD1 at the time of discharge, patient's vital signs are stable. Her pain is controlled on oral pain medications and ice packs. She is tolerating a diet with no nausea or vomiting, passing gas, has not had a bowel movement yet. She is continued on bowel regimen. She is voiding well. Denies any symptoms of chest pain, shortness of breath, lightheadedness, dizziness. Patient has worked with physical therapy and occupational therapy. Case management assisted with discharge planning. Patient is deemed medically stable to be discharged swing bed for further recovery. Her chronic medical problems were stable. Her lisinopril (for HTN) and Lasix (for edema) were held until BMP was confirmed to be WNL on POD 1. Antihypertensives were restarted. Per nursing staff there were concerns for low saturations prior to discharge and received RT per protocol. Of note, patient is a current everyday smoker, trying to cut down but currently smokes 1ppd and has underlying COPD (not in exacerbation). O2 saturations 88-92% are acceptable. Attempting much higher saturations with O2 supplementation might put her at risk for losing her hypoxic drive. Her respiratory status was stable at the time of discharge. Preop Hgb 14.1. Postop Hgb 12.1, post-surgical drop in Hgb as expected. Hgb may be rechecked at next routine follow-up. DVT prophylaxis per surgeon - aspirin 325 mg BID for 30 days. Then resume her home regimen of 81 mgdaily (for peripheral vascular disease and bilateral carotid artery stenosis) SARS-CoV-2 not detected on 12/24/2020 Continue home medications as per AVS Discharge planning and instructions were discussed in detail with patient. She verbalized understanding and all questions/concerns were addressed satisfactorily. Procedures Performed and Findings Procedure(s): LEFT TOTAL KNEE REPLACEMENT - Wound Class: Clean Discharge Exam Vital Signs: Temp: 98.6 F (37 C) | BP: 145/77 | Pulse: 98 | Resp: 16 | Pain Ratin (out of 10) | Weight: 89.1 kg (196 lb 6.9 oz) | SpO2: 90 % Intake and Output: 12/24 0700 - 12/25 0659 In: 1889 [Oral:720] Out: 800 [Urine:800] Physical Exam General: No apparent distress. Speaks in full sentences. Obese body habitus. Breathing room air HEENT: Normocephalic/Atraumatic. Normal conjunctivae. Pupils equal, round, and reactive to light. Oropharynx clear, moist mucous membranes. Cardiovascular: Normal rate, regular rhythm, audible S1/S2. No pedal edema. Palpable distal pulses. Pulmonary/Chest: Normal respiratory effort, clear breath sounds auscultated in all lung de oliveira. No adventitious sounds. Abdominal: Soft. Obese. Non-tender. Non-distended. Bowel sounds present. Musculoskeletal: Left knee, decreased range of motion. Appropriate postoperative tenderness. Surgical dressing in place. Intact distal sensation and motor function Neurological: Alert and oriented to person, place, and time. No focal findings. Dermatologic: Skin is warm and dry. No rash. Psychiatric: Affect, mood, behavior, speech, demeanor, judgement and thought content unremarkable. Consults CONSULT INTERNAL MEDICINE Discharge Disposition Discharge Medications Medication List START taking these medications docusate sodium 100 MG capsule Commonly known as: COLACE Take 1 capsule (100 mg) by mouth 2 times a day Hold for >2-3 BMs per day or 4 loose stools HYDROcodone-acetaminophen 5-325 mg tablet Commonly known as: NORCO Take 1-2 tablets by mouth every 6 hours as needed for moderate pain or severe pain CHANGE how you take these medications albuterol-ipratropium 20-100 MCG/ACT inhaler Commonly known as: COMBIVENT RESPIMAT Inhale 1 puff orally Every 4 hours as needed for shortness of breath or wheezing What changed: when to take this reasons to take this * aspirin 325 MG enteric coated tablet Take 1 tablet (325 mg) by mouth 2 times a day What changed: You were already taking a medication with the same name, and this prescription was added. Make sure you understand how and when to take each. * aspirin 81 mg enteric coated tablet Take 1 tablet (81 mg) by mouth 1 time per day Start after completing one month course of twice dailyaspirin 325 mg Start taking on: January 25, 2021 What changed: These instructions start on January 25, 2021. If you are unsure what to do until then, askyour doctor or other care provider. * This list has 2 medication(s) that are the same as other medications prescribed for you. Read thedirections carefully, and ask your doctor or other care provider to review them with you. CONTINUE taking these medications acetaminophen 500 mg tablet Commonly known as: TYLENOL Take 2 tablets (1,000 mg) by mouth 4 times a day arthritis hot 10-15 % Crea CENTRUM SILVER ULTRA WOMENS PO furosemide 40 mg tablet Commonly known as: LASIX Take 0.5 tablets (20 mg) by mouth Every other day lisinopril 20 mg tablet Commonly known as: PRINIVIL, ZESTRIL Take 1 tablet (20 mg) by mouth 1 time per day Tylenol Cold/Flu Severe 8-18-371-325 MG tablet Generic drug: VVPBHIfbvhnvz-ZW-depsOIXcphz-acetaminophen STOP taking these medications ibuprofen 200 mg tablet Commonly known as: ADVIL;MOTRIN-IB Where to Get Your Medications These medications were sent to [facility] [place] [address] [place] [address] [facility] [address] [address] albuterol-ipratropium 20-100 MCG/ACT inhaler aspirin 325 MG enteric coated tablet aspirin 81 mg enteric coated tablet docusate sodium 100 MG capsule furosemide 40 mg tablet HYDROcodone-acetaminophen 5-325 mg tablet lisinopril 20 mg tablet Discharge Instructions See AVS for discharge instructions. Tests Pending at Discharge Unresulted Pathology Orders (From admission, onward) Start Ordered 04/16/21 1118 TISSUE EXAM RELEASE UPON ORDERING, Routine Comments: Specimen A: Left knee bone and tissue Start: 12/24/201117 End: None 12/24/201117 Follow-Up Scheduled See AVS for Follow up appointments made Medical Decision Making The time spent on discharge coordination was greater than 30 minutes. documented in this encounter Medications at Time of Discharge Medication Sig Dispensed Refills Start Date End Date HYDROcodone-acetaminophe Take 1-2 tablets by 20 tablet 0 n (NORCO) 5-325 mg mouth every 6 hours tabletIndications: as needed for Status post total left moderate pain or knee replacement severe pain aspirin 325 MG enteric Take 1 tablet (325 60 tablet 0 12/2501/24/2021 coated mg) by mouth 2 times tabletIndications: a day Status post total left knee replacement aspirin 81 mg enteric Take 1 tablet (81 30 tablet 0 021 coated mg) by mouth 1 time tabletIndications: per day Start after Bilateral carotid artery completing one month stenosis course of twice daily aspirin 325 mg albuterol-ipratropium Inhale 1 puff orally 4 g 0 12/09 (COMBIVENT RESPIMAT) Every 4 hours as 20-100 MCG/ACT needed for shortness inhalerIndications: of breath or Panlobular emphysema wheezing (HCC) lisinopril (PRINIVIL, Take 1 tablet (20 90 tablet 0 021 ZESTRIL) 20 mg mg) by mouth 1 time tabletIndications: per day Essential hypertension furosemide (LASIX) 40 mg Take 0.5 tablets (20 45 tablet 4 0 12/25/2020 12/30/2021 tabletIndications: mg) by mouth Every Edema, peripheral other day docusate sodium (COLACE) Take 1 capsule (100 60 capsule 0 01/24/2021 100 MG mg) by mouth 2 times capsuleIndications: a day Hold for >2-3 Status post total left BMs per day or 4 knee replacement loose stools Menthol-Methyl Apply topically 0 Salicylate (ARTHRITIS HOT) 10-15 % CREA acetaminophen (TYLENOL) Take 2 tablets 100 tablet 0 02/19/20 20 500 mg (1,000 mg) by mouth tabletIndications: 4 times a day Status post total right knee replacement Multiple Take 1 tablet by 0 Vitamins-Minerals mouth 1 time per day (CENTRUM SILVER ULTRA WOMENS PO) SOYANMrxhomwm-JX-xehdYIS Take 2 tablets by 0 05/12 esin-acetaminophen mouth Every 4 hours (TYLENOL COLD/FLU as needed for other SEVERE) 5-47-913-325 MG (Specify) tabletIndications: (allergies) Chronic allergic rhinitis documented as of this encounter Progress Notes Claude Shah PA - 12/25/2020 9:25 AM CDT Ortho Progress Note Loretta Sarmiento is a 70yr old female 1 Day Post-Op, Status Post Procedure(s): LEFT TOTAL KNEE REPLACEMENT. BP 145/77 | Pulse 98 | Temp 98.6 F (37 C) | Resp 16 | Ht 1.473 m (4' 10") | Wt 89.1 kg (196lb 6.9 oz) | SpO2 95% | BMI 41.05 kg/m Lab Results Component Value Date HEMOGLOBIN 12.1 12/25/2020 Patient doing ok, complains of moderate pain. The patient denies nausea. The dressing/incision is bloody With medium drainage. Compartments soft and non-tender. Distal NV intact left lower extremity. Plan: Continue cares. Ambulate. Change dressing prior to discharge. [place] PRN. Discharge to swing bed today. Shiv Lopes RP - 12/24/2020 9:48 AM CDT 12/24/2020 9:48 AM CDT - Patient was seen by the pharmacy medication reconciliation team and HOME MEDICATIONS were reconciled and updated to match the patient's home usage. Home medications to be labeled for hospital use: COMBIVENT RESPIMAT INHALER ZAPATA Med to Bed: YES No additions, deletions, or changes to the patient's home medication list were indicated. Prior to Admission Medications Prescriptions Last Dose Informant Patient Reported? Taking? Menthol-Methyl Salicylate (ARTHRITIS HOT) 10-15 % CREA Past Month at Unknown time Self Yes Yes Sig: Apply topically Multiple Vitamins-Minerals (CENTRUM SILVER ULTRA WOMENS PO) 12/09/2020 Self Yes Yes Sig: Take 1 tablet by mouth 1 time per day JIVZHQbegjfdw-LJ-rlopTEDvnvi-acetaminophen (TYLENOL COLD/FLU SEVERE) 4-92-768-325 MG tablet 12/09/2020elf Yes Yes Sig: Take 2 tablets by mouth Every 4 hours as needed for other (Specify) (allergies) acetaminophen (TYLENOL) 500 mg tablet 12/23/2020 at Unknown time Self No Yes Sig: Take 2 tablets (1,000 mg) by mouth 4 times a day albuterol-ipratropium (COMBIVENT RESPIMAT) 20-100 MCG/ACT inhaler Past Week POM at Unknown time SelfNo Yes Sig: Inhale 1 puff orally every 4 to 6 hours as needed for wheezing aspirin 81 mg enteric coated tablet 12/09/2020 Self No Yes Sig: Take 1 tablet (81 mg) by mouth 1 time per day Start after completing one month course of twice daily aspirin 325 mg furosemide (LASIX) 40 mg tablet 12/22/2020 Self No Yes Sig: Take 0.5 tablets (20 mg) by mouth Every other day ibuprofen (ADVIL;MOTRIN-IB) 200 mg tablet Past Week at Unknown time Self Yes Yes Sig: Take 200 mg by mouth Every 4 hours as needed lisinopril (PRINIVIL, ZESTRIL) 20 mg tablet 12/23/2020 at 0730 Self No Yes Sig: Take 1 tablet (20 mg) by mouth 1 time per day Facility-Administered Medications: None Patient denies use of other inhalers, creams/ointments, eye/ear drops, patches or injectables, OTCs,vitamins, and/or herbal products. Shiv Jiménez PharmD. [facility]. Mitch Sauer MD - 12/24/2020 8:59 AM CDTH&P Updates and Indication for Care/Procedure: I have examined the patient, reviewed the H&P and no changes to the patient's condition. I have explained the risks, including risk of COVID-19 exposure, benefits, indications, and alternatives for the procedure, answered questions and obtained the appropriate consent to proceed. documented in this encounter Consult Notes Ambreen Ochoa APRN-CNP - 12/24/2020 2:46 PM CDTAssociated Order(s): CONSULT INTERNAL MEDICINE HOSPITAL CONSULT NOTE Patient ID: Loretta Sarmiento is a 70yr female. PCP: Bernadette Molina DO Attending Provider: Mitch Hernandez MD CONSULT INTERNAL MEDICINE Consult performed by: Ambreen Ochoa APRN-CNP Consult ordered by: Sarah Figueroa PA Impression / Plan #Hypertension Hold lisinopril and Lasix till a.m. labs BMP in a.m. #Panlobular emphysema Continue Combivent #History of myasthenia gravisno current medications #Peripheral vascular disease with bilateral carotid artery stenosis Patient will be on aspirin regimen postoperatively for 30 days and then resume her home regimen #Status post left total knee arthroplasty Managed by orthopedics Aspirin 325 mg twice daily for 30 days for DVT prophylaxis per orthopedic preference [place] scheduled for pain, oxycodone as needed Hemoglobin in a.m., preop hemoglobin 14.1 PT/OT to see Case management to assist with discharge planning patient plans to discharge to swing bed in [place] if able. Discussed outpatient status with patient. Case management will follow up #Nicotine dependence Nicotine replacement protocol #Morbid obesity Body mass index is 41.05 kg/m. Chief Complaint / HPI HPI Loretta Sarmiento is admitted under the orthopedic service status post left total knee arthroplasty on 12/24/2020. Spinal anesthesia with adductor canal block. Estimated blood loss 150 mL. Internal medicine consultation requested to assist with co-managment postoperatively. Patient was seen at her bedside. She currently denies any pain, chest pain, shortness of breath, nausea, and headache. She does have numbness and tingling remaining from her anesthesia. She has not voided since surgery. Patient has had left knee pain for approximately 2 years. Preoperatively she rates her pain 8 out of 10. She had difficulty with ambulation and activities of daily living. She tried jqhw-rlw-etsdrwceylhpmowxm for pain control prior to surgery. She was not using a walker or cane at home. Preop labs reviewed from 12/22/2020: Hemoglobin 14.1, creatinine 0.74, GFR 70 Chest x-ray reviewed from 12/09/2020: 1. Lungs are clear of acute infiltrates. 2. Heart size normal. No pulmonary edema. 3. Moderate degenerative changes of the intervertebral discs of the thoracic vertebral bodies. Echocardiogram reviewed from 06/16/2019: Ejection fraction 65%, grade 1 left ventricular diastolic dysfunction EKG reviewed from 06/03/2019: Normal sinus rhythm, biatrial enlargement Medications Current Facility-Administered Medications Medication no anticoagulants/antiplatelets reminder aspirin (ECOTRIN) enteric coated tablet 325 mg sodium chloride 0.9% flush (adult) 10 mL sodium chloride 0.9% IV solution HYDROcodone-acetaminophen (NORCO) 5-325 mg tablet 1 tablet oxyCODONE (OXY-IR) tablet 5-10 mg fentaNYL 100 mcg/2 mL preservative free injection solution 75 mcg ketorolac (TORADOL) intravenous injection 15 mg docusate sodium (COLACE) capsule 100 mg magnesium hydroxide (MILK OF MAGNESIA) oral suspension 30 mL bisacodyl (DULCOLAX) enteric coated tablet 5 mg bisacodyl (DULCOLAX) suppository 10 mg ondansetron (ZOFRAN) injection solution 4 mg benzocaine-menthol (CEPACOL w/ BENZOCAINE) lozenge 1 lozenge diphenhydrAMINE (BENADRYL) injection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 block was placed back on the femur and the remaining femoral cuts were performed. A size 5 femoral trial was impacted on the bone and this had a good fit. The size C tibial trial was placed on the tibial bony surface and this had a good fit. A 10 mm polyethylene trial was then placed into the knee and range of motion and stability were evaluated and found to be appropriate. The patella was then everted and the articular surface was resected using a saw. The patella was sized to a 29 and lug holes were drilled for that implant. A trial patellar button was then placed on the patella and patellar tracking was evaluated during flexion and extension of the knee. The patella tracked centrally. The trial components were then removed from the knee. The tibial base plate was pinned in position on the tibia and the keel punch was performed. Cement was mixed at the back table while the bony surfaces were washed and dried. The final size C tibia and size 5 femur were cemented and impacted. Excess cement was removed. The 10 mm polyethylene trial was placed into the knee and it was held in full extension while the patellar button was cemented and held in place with a clamp. Once the cement had hardened the trial polyethylene was removed and replaced with the final 10 mm polyethylene component. The knee was then reduced and irrigated with a large amount of sterile saline. The extensor mechanism was closed with interrupted #1 Vicryl suture. The skin was closed with 2.0 Vicryl suture and jorje. Sterile dressings were then applied. The patient was taken to the recovery room in stable condition. The skilled assistance of the RADHA Figueroa was necessary for the successful completion of this case. He/She was essential for proper positioning, manipulation of instruments, proper exposure, manipulation of tissue and wound closure. Due to schedule rotations, a qualified resident was not available to assist me in this case. SURGEON: Shun Hernandez MD ASST: YAMEL Choi BLOOD LOSS: 150 ml DRAINS: None are Planning - Brook Ann RN - 12/24/2020 7:57 AM CDTPt here for surgery. POC initiated. Informed pt that I would be going over confidential medical information and history with family/friend present in the room. Pt gives consent to proceed. documented in this encounter Plan of Treatment Date Type Specialty Care Team Description 01/06/2021 Office Visit Orthopedics Sarah Figueroa PA [address], [address] [place] [facility] [place] [address] [phone] 01/24/2021 Office Visit Orthopedics Mitch Hernandez MD [address] [place] [address] [phone] 03/10/2021 Office Visit Internal Medicine Carissa Molina, DO [address] [place] [address], [place] [address] [phone] Name Type Priority Associated Diagnoses Date/Ti me TISSUE EXAM PATH Routine Arthritis of knee, left 12/09 11:10 AM CDT Name Type Priority Associated Diagnoses Order S chedule TISSUE EXAM PATH Routine Arthritis of knee, left Rele ase Upon Ordering for 1 Occurrences sta rting 12/24/2020 documented as of this encounter Implants Implanted Type Area Assistant Food Service Director Device Shelf Model / Identifier Expiration Serial / Lot Date Cmnt Bone Cmnt-R 1x40 N [id number] Ea1 - [id number] Tissue Left: SHERRY 05/10/2025 [id number] / Implanted: Qty: 1 on 12/24/2020 by Mitch Cassidy MD at [facility] Synthetic KNEE / [id number] Knee Psn Asf Mc [id number] N [id number] Ea1 - [id number] Total Jt Knee Right: SHERRY 06/09/202407-7279-264- / Implanted: 02/17/2020 by Mitch Hernandez MD at [facility] (Quantity not on file) KNEE / [id number] Knee Psn Ptla All Pe Ve 29mm N [id number] Ea1 - [id number] Total Jt Knee Right: SHERRY 07/10/2024 [id number] / Implanted: 02/17/2020 by Mitch Hernandez MD at [facility] (Quantity not on file) KNEE / [id number] Knee Fem Psn Cr Cmnt Std Rtsz5 N [id number] Ea1 - [id number] Total Jt Knee Right: SHERRY 07/10/2029 [id number]- / Implanted: 02/17/2020 by Mitch Hernandez MD at [facility] (Quantity not on file) KNEE / [id number] Knee Tib Stem Psn 5d Rt Szc N [id number] Ea1 - [id number] Total Jt Knee Right: SHERRY 09/09/2029 [id number]- / Implanted: 02/17/2020 by Mitch Hernandez MD at [facility] (Quantity not on file) KNEE / [id number] Knee Psn Ptla All Pe Ve 29mm N [id number] Ea1 - [id number] Total Jt Knee Left: SHERRY 08/30/2025 [id number] / Implanted: Qty: 1 on 12/24/2020 by Mitch Cassidy MD at [facility] KNEE / [id number] Knee Fem Psn Cr Cmnt Stdlftsz5 N [id number] Ea1 - [id number] Total Jt Knee Left: SHERRY 04/09/2030 [id number] / Implanted: Qty: 1 on 12/24/2020 by Mitch Cassidy MD at [facility] KNEE / [id number] Knee Psn [id number] 4-5cd N [id number] Ea1 - [id number] Total Jt Knee Left: SHERRY 07/26/2025 01-0967-536-10 / Implanted: Qty: 1 on 12/24/2020 by Mitch Cassidy MD at [facility] KNEE / [id number] Knee Tib Stem Psn 5d Lft Szc N 43-6873-799-01 Ea1 - [id number] Total Jt Knee Left: SHERRY 02/07/2029 [id number] / Implanted: Qty: 1 on 12/24/2020 by Mitch Cassidy MD at [facility] KNEE / [id number] Cmnt Bone Cmnt-R 1x40 N [id number] Ea1 - [id number] Right: SHERRY 12/09/2023 [id number] / Implanted: 02/17/2020 by Mitch Hernandez MD at [facility] (Quantity not on file) KNEE / [id number] documented as of this encounter Procedures Procedure Name Priority Date/Time Associated Comments Diagnosis HEMOGLOBIN Routine 12/25/2020 6:30 AM Results for this CDT procedure are i n the results section. BASIC METABOLIC Routine 12/25/2020 6:30 AM Resul ts for this PANEL CDT procedure are i n the results section. SARS-COV-2, STAT 12/24/2020 3:42 PM Results for this INFLUENZA A+B, CDT procedure are in AND/OR RSV NUCLEIC the resul ts ACID TESTING PANEL section. XRAY KNEE 1-2 VIEWS Routine 12/24/2020 12:33 PM R esults for this LT CDT procedure are i n the results section. documented in this encounter Results BASIC METABOLIC PANEL (12/25/2020 6:30 AM CDT) [facility] Glucose 135 (H) 70 - 100 mg/dL [facility] BUN 13 6 - 22 mg/dL [facility] Creatinine 0.72 0.60 - 1.10 [facility] mg/[facility] BUN/Creatinine Ratio 18.1 10.0 - 25.0 [facility] Sodium 139 135 - 145 meq/L [facility] Potassium 4.0 3.5 - 5.3 meq/L [facility] Chloride 108 99 - 110 meq/L [facility] CO2 22 20 - 29 meq/L [facility] Anion Gap with K 13 6 - 20 meq/L [facility] Calcium 9.1 8.5 - 10.5 [facility] mg/dL [place] Age 70 Years [facility] eGFR Non- 80 >=60 [facility] [place] mL/min/1.73m2 [place] eGFR >90 >=60 [facility] mL/min/1.73m2 [place] Specimen Blood - Blood specimen (specimen) Performing Organization Address [facility] [address]/[facility] Phone Number [facility] [address] [place], [place] [phone] HEMOGLOBIN (12/25/2020 6:30 AM CDT) [facility] Hemoglobin 12.1 11.5 - 15.8 g/dL [facility] Specimen Blood - Blood specimen (specimen) Performing Organization Address City/[facility] [address]/Zipcode Phone Number [facility] [address] [place], [place] [phone] SARS-COV-2, INFLUENZA A+B, AND/OR RSV NUCLEIC ACID TESTING PANEL (12/24/2020 3:42 PM CDT) Pathologist [facility] SARS-CoV-2 Not Detected Not Detected [facility] Specimen Respiratory - Nasopharyngeal swab (speci men) Narrative Performed At Please read entire report. Results for Influenza A and B or [facility] RSV may also be available depending on which viruses y our provider selected for testing. Your Covid-19 test is negative: 1)Avoiding close contact is s till recommended. 2)Cover your coughs and snee zes. 3)Wash your hands often with soap and wate r for at least 20 seconds or use an alcohol-based truck loader overhead crane containing over 60% alcohol. Avoid touch ing your face. 4)Avoid sharing personal household items, including dishes, cups, utensils, towels, clothing, or bedding. These items should be cleaned thoroughly with soap and water after use. Clean all "high touch" surfaces i n your home daily. 5) Monitor your symptoms. Contact your provider if you are feeling worse. If you have shortness of breath or difficulty breathing, call 911. This assay is for in vitro diagnostic use under FDA Emergency Use Authorization only. Optimal performance of this test requires appropriate specimen collection, storage, and transport to the [facility]. Detection of SARS-CoV-2 RNA may be affected by sample collection methods, patient factors (eg, presence of symptoms), and/or stage of infection. False-negative results may arise from degradation of v iral RNA during shipping/storage. Results should be interpreted by a trained professiona l in conjunction with the patient s history and clinical signs and symptoms, and epidemiological risk factors. Negative (Not Detected) results do not preclude infect ion with the SARS-CoV-2 virus and should not be the sole b asis of patient treatment/management or public health decis ion. Follow up testing should be performed according to the current CDC recommendations. This test was performed by polymerase chain reaction ( PCR) on the GeneXpert instrument. Performing Organization Address City/State/Zipcode Phone Number [facility] [address] [place], [place] [phone] XRAY KNEE 1-2V - LT (12/24/2020 12:33 PM CDT) Specimen Narrative Performed At [facility] Patient Name: LORETTA SARMIENTO Date of : 1950 Procedure: XRAY KNEE 1-2 VIEWS LT Date of Service: 12/24/2020 EXAM: XRAY KNEE 1-2 VIEWS LT INDICATION:TKA COMPARISON(S): 08/23/2020 FINDINGS/IMPRESSION: Postoperative changes left TKA. Negative for postoperative purposes. Finalized by: Jeanette Christianson MD on 2020 1:15 PM CDT Patient/Procedure Information: [facility] MRN/MAGEN: [id number] Order Number: [id number] Accession Number: [id number] Ordering Provider: SARAH FIGUEROA Authorizing Provider: SARAH FIGUEROA Procedure Note Interface, Radiantres - 12/24/2020 1:17 PM CDT Patient Name: LORETTA SARMIENTO Date of : 1950 Procedure: XRAY KNEE 1-2 VIEWS LT Date of Service: 12/24/2020 EXAM: XRAY KNEE 1-2 VIEWS LT INDICATION:TKA COMPARISON(S): 08/23/2020 FINDINGS/IMPRESSION: Postoperative changes left TKA. Negative for postoperative purposes. Finalized by: Jeanette Christianson MD on 2020 1:15 PM CDT Patient/Procedure Information: [facility] MRN/MAGEN: [id number] Order Number: [id number] Accession Number: [id number] Ordering Provider: SARAH FIGUEROA Authorizing Provider: SARAH FIGUEROA Performing Organization Address City/State/Zipcode Phone Number [id number] documented in this encounter Visit Diagnoses Diagnosis Status post total left knee replacement - Primary Arthritis of knee, left Unspecified arthropathy, lower leg Bilateral carotid artery stenosis Occlusion and stenosis of multiple and b ilateral precerebral arteries without mention of cerebral infarction Panlobular emphysema (HCC) Other emphysema Essential hypertension Unspecified essential hypertension Edema, peripheral Edema documented in this encounter Discharge Diagnoses Not on filedocumented in this encounter Administered Medications Medication Order MAR Action Action Date Dose Rate Site albuterol-ipratropium (COMBIVENT Given 12/25/2020 7:53 AM CDT 1 puff RESPIMAT) inhaler 1 puff 1 puff, Inhalation, Every four hours prn, Starting Sun12/24/20 at 1453, Until Discontinued, shortness of breath, wheezing, Shake Well. Patient s own medication has been identified by Pharmacist and approved for hospital use by hospital policy., Given 12/25/2020 2:51 AM CDT 1 puff aspirin (ECOTRIN) enteric coated tablet 325 Given 12/09 7:35 AM CDT 325 mg mg 325 mg, Oral, Two times a day, First dose on Sun12/24/20 at 2100, Until Discontinued, Post - Op, Tablet should be swallowed whole and not be divided, crushed or chewed., Given 12/24/2020 9:26 PM CDT 325 mg docusate sodium (COLACE) capsule 100 mg Given 12/25/2020 7:35 AM CDT 100 mg 100 mg, Oral, Two times a day, First dose on Sun12/24/20 at 2100, Until Discontinued, Post - Op, Swallow cap whole. Should not be crushed or chewed, Given 12/24/2020 9:26 PM CDT 100 mg furosemide (LASIX) tablet 20 mg Given 12/25/2020 9:43 AM CDT 20 mg 20 mg, Oral, Every other day, First dose on Sun12/25/20 at 0900, Until Discontinued, Hold for SBP less than 100, HYDROcodone-acetaminophen (NORCO) 5-325 mg Given 12/25 6:49 AM CDT 1 tablet tablet 1 tablet 1 tablet, Oral, Every six hours, First dose on Sun12/24/20 at 1800, Until Discontinued, Post - Op, Total dose of acetaminophen from all acetaminophen containing products should not exceed 4 grams (4000 mg) per day., lisinopril (PRINIVIL, ZESTRIL) tablet 20 mg Given 12/25/2020 9:43 AM CDT 20 mg 20 mg, Oral, DAILY, First dose on Sun12/25/20 at 0900, Until Discontinued, Hold for SBP less than 100, sodium chloride 0.9% flush (adult) 10 mL Given 12/24/2020 9:27 PM CDT 10 mL 10 mL, IV, Two times a day and prn, First dose on Sun12/24/20 at 2100, Until Discontinued, 10 mL, Post - Op, Flush unused lumens as scheduled and as often as necessary before and after meds. Use a push/pause technique when flushing to create turbulence., Medication Order MAR Action Action Date Dose Rate Site acetaminophen (TYLENOL) tablet Given 12/24/2020 9:04 AM CDT 1,0 00 mg 1,000 mg 1,000 mg, Oral, Pre-op, 1 dose, Sun12/24/20 at 0800, Pre - Op, Adult patients: Total dose of acetaminophen from all acetaminophen containing products should not exceed 4 grams (4000 mg) per day. Pediatric Patients 0 - 3 months: Maximum of 60 mg/kg/24 hours of acetaminophen. Pediatric Patients older than 3 months: Maximum of 75 mg/kg/24 hours of acetaminophen (Never exceeding 4 grams/day). , ceFAZolin (ANCEF) 2000 mg/20 mL sterile Given 12/25/2020 2:33 A M CDT 2,000 mg water IV syringe 2,000 mg, IV, Every eight hours, 2 doses, First dose on Sun12/24/20 at 1900, Last dose on Sun12/25/20 at 0300, 20 mL, PACU - Continue Post-Op, Administer as IV push over 4 minutes., Given 12/24/2020 6:43 PM CDT 2,000 mg fentaNYL 100 mcg/2 mL preservative free Given 12/24/2020 10:26 A M CDT 50 mcg injection solution 25-100 mcg 25-100 mcg, IV, Every five minutes prn, 3 doses, Starting Sun12/24/20 at 0755, Until Sun12/24/20 at 1214, for block, 2 mL, Pre - Op, Fentanyl 25-100 mcg q 5 min prn over the next 2 hours to a MAX of 300 mcg as needed for analgesia during procedure, gabapentin (NEURONTIN) capsule 600 mg Given 12/24/2020 9:04 AM CDT 600 mg 600 mg, Oral, Pre-op, 1 dose, Sun12/24/20 at 0800, Pre - Op, 1 dose prior to surgery, ketorolac (TORADOL) intravenous injection 15 Given 9:04 AM CDT 15 mg mg 15 mg, IV, Pre-op, 1 dose, Sun12/24/20 at 0800, 1 mL, Pre - Op, 1 dose prior to surgery If preference is to further dilute for IV administration: First draw up patient-specific dose, then dilute to 10 mL with 0.9% sodium chloride., ketorolac (TORADOL) intravenous injection 15 Given 9:26 PM CDT 15 mg mg 15 mg, IV, Every six hours, 3 doses, First dose on Sun12/24/20 at 1500, Last dose on 12/25/20 at 0300, 1 mL, Post - Op, Max prn dose = 60 mg/day If preference is to further dilute for IV administration: First draw up patient-specific dose, then dilute to 10 mL with 0.9% sodium chloride., Given 12/24/2020 3:01 PM CDT 15 mg lactated ringers IV solution New Bag 12/24/2020 11:46 AM CDT IV, at 25 mL/hr, Continuous, Starting Sun12/24/20 at 0855, Until Sun12/24/20 at 1214, 1,000 mL, Pre - Op Now New Bag/Tubing 12/24/2020 9:04 AM CDT 25 mL/hr lactated ringers IV solution Already Infusing 12/24/2020 12:14 PM CDT 125 mL/hr IV, at 125 mL/hr, Continuous, Starting Sun12/24/20 at 1230, Until Sun12/24/20 at 1313, 1,000 mL, PACU, TKO current fluids if patient is going to Day Unit / ARU and tolerating PO fluids without nausea., midazolam (VERSED) injection solution 0.25-2 Given 10:26 AM CDT 2 mg mg 0.25-2 mg, IV, Every five minutes prn, 6 doses, Starting Sun12/24/20 at 0755, Until Sun12/24/20 at 1214, sedation, 2 mL, Pre - Op, Midazolam 0.25-2 mg q 5 min prn to a MAX of 5 mg as needed for sedation during procedure., ropivacaine 0.5 % 100 mg Peripheral Nerve Block Given 12/24/2020 10:26 AM CDT Injection Syringe Perineural, Now, 1 dose, Sun12/24/20 at 0800, 20 mL, Pre - Op, Inject 5-10 mL per administration as directed by Anesthesia with a total maximum of 40 mL, sodium chloride 0.9% IV solution New Bag/Tubing 12/24/2020 1:30 PM CDT 75 mL/hr IV, at 75 mL/hr, Continuous, Starting Sun12/24/20 at 1335, Until Sun12/25/20 at 0322, 1,000 mL, Post - Op traMADol (ULTRAM) tablet 100 mg Given 12/24/2020 9:04 AM CDT 100 mg 100 mg, Oral, Pre-op, 1 dose, Sun12/24/20 at 0800, Pre - Op, Recommended maximum daily dose of tramadol = 400 mg. Recommended maximum daily dose in patients 75 years or older = 300 mg., documented in this encounter
== END 2020-12-26 11:17 | disposition critical access hospital (66) | DRG 560 ==
LOC: VM.MS 11:41
PROVIDERS: ADMIT Internal Medicine; ATTEND Internal Medicine
DX: Z47.1 Aftercare following joint replacement surgery (principal); I50.32 Chronic diastolic (congestive) heart failure; Z96.652 Presence of left artificial knee joint; I11.0 Hypertensive heart disease with heart failure; J43.9 Emphysema, unspecified; E66.9 Obesity, unspecified; G70.00 Myasthenia gravis without (acute) exacerbation; F17.200 Nicotine dependence, unspecified, uncomplicated; M19.90 Unspecified osteoarthritis, unspecified site; I73.9 Peripheral vascular disease, unspecified; M62.838 Other muscle spasm; Z91.041 Radiographic dye allergy status; Z88.8 Allergy status to other drugs, medicaments and biological substances; Z79.82 Long term (current) use of aspirin; Z90.49 Acquired absence of other specified parts of digestive tract
CPT/HCPCS: A9270-GY

== ENCOUNTER 2020-12-26 11:13 | Inpatient (IN) | payer MEDICARE, MEDICAID ==
[2020-12-26] MEDS ORDERED: Menthol/Methyl Salicylate 85 GM Tube TOP PRN (11:15)
[2020-12-26] MEDS ORDERED: [UNRECOGNIZED DRUG - OTHER] PO PRN (11:15)
[2020-12-26] MEDS ORDERED: Acetaminophen/HYDROcodone 325-5 MG Tab PO PRN (11:15)
--- NOTE | 2020-12-26 11:28 | PCM.SN.2 ---
- Free Text/Narrative Note: Discussed case with one call and ID will try to reach her surgeon Shun Doshi if he is available tomorrow. Full H and P dictated.
[2020-12-26 11:43] LABS: CHLORIDE,CL 101 mmol/L (98-107); SODIUM,NA 138 mmol/L (136-145)
[2020-12-26] MEDS ORDERED: Albuterol/Ipratropium 3.0-0.5 MG/3 ML Neb Soln INH PRN (12:02)
--- NOTE | 2020-12-26 12:12 | HP ---
CHIEF COMPLAINT: Left leg pain, redness, and warmth after a left knee replacement on the . HISTORY OF PRESENT ILLNESS: A 70-year-old who came here yesterday for swing bed on postop day 1, but had severe thigh and calf pain after transfer. She had a little bit of redness, but no warmth to her lower leg. She does have still some of the ChloraPrep wash on. She had a little bit of drainage, more so bleeding, from her incision. This morning, though her leg is more red, it is still painful, but the pain is relieved by pain pills, and it is warm. She had a low- grade temperature of 99.7 yesterday. She is breathing okay. She has not had a cough. No bowel movement. No nausea, but just feels sick to her stomach, like eating. Blood pressure was also elevated today, presumably due to pain. She is on aspirin for DVT prophylaxis. She did get a Flexeril yesterday for pain. She has not used any Icy Hot or other rubs on her incision. For her full past medical history, past surgical history, social history, and family history, please refer to the full dictated H and P done yesterday for her swing bed admission. REVIEW OF SYSTEMS: General: No weight changes. No fever. No chills. HEENT: No trouble swallowing. Cardiac: No chest pain. No palpitations. Otherwise, as stated in the HPI. PHYSICAL EXAMINATION: Vital Signs: Right now, temperature 98.1, pulse 86, blood pressure 187/75, respiratory rate 20, and O2 of 94 on room air. General: In no acute distress. Heart: Regular rate and rhythm. S1 and S2, without murmur. Respiratory: Lungs sounds are clear to auscultation bilaterally without crackles or wheezes. Extremities: Warm and dry. On the right leg, no edema, no calf tenderness. Left leg incision is noted to be intact with jorje with just a little bit of bloody drainage. There is redness starting about chcf at the knee and spreading laterally and down into the calf which is warm. She has swelling throughout that leg, but not necessarily a joint effusion. She is able to nearly get that knee to 90 degrees, and she can straighten it fully. Mental Status: She is alert and orientated x3. ASSESSMENT: 1. Postoperative day #3 from a left knee replacement with redness and swelling with concern for infection; however, this is quite acute. Causes would likely be something like staph as discussed with ID. We will start her on Ancef 2 g q.8 hours and get lab work. She will be upgraded to acute cares. 2. Essential hypertension, elevated, likely due to pain. We will continue her home medications, but increase the Lasix to daily. 3. Smoking. We will get her on a nicotine patch if she requests it. 4. Chronic diastolic heart failure, on Lasix. I feel her swelling currently is more postoperative, but we will increase it to daily to help with blood pressure. Currently, I do not feel like we can get on some support hose, but after the redness goes down, we can try this. 5. Deep venous thrombosis prophylaxis with aspirin. We will continue with the same for now. 6. Emphysema and hypoxia. We will continue incentive spirometry. 7. Obesity. 8. Myasthenia gravis, in remission. PLAN: At this point, the patient will be on acute cares with IV Ancef and lab work. She is a code level 1. She will be up and working with therapies. MKA: 12/26/2020 11:27:29 MODL: 12/26/2020 12:01:05 /[id number]
[2020-12-26] MEDS: Acetaminophen 500 MG Tab PO SCH ×2 (12:39→21:17)
[2020-12-26] MEDS: Potassium Chloride 10 MEQ Tab.ER PO SCH ×2 (12:39→17:43)
[2020-12-26] MEDS: Sennosides 8.6 MG Tab PO SCH ×2 (12:39→21:17)
[2020-12-26] MEDS: ceFAZolin 1 GM Vial IVPUSH SCH ×2 (13:05→21:16)
[2020-12-26] MEDS: Acetaminophen/HYDROcodone 325-5 MG Tab PO PRN (13:55)
[2020-12-26] MEDS: amLODIPine 2.5 MG Tab PO SCH (18:26)
[2020-12-26] MEDS: Aspirin 325 MG Tab.EC PO SCH (21:17)
[2020-12-26] MEDS: Docusate Sodium 100 MG Cap PO SCH (21:17)
[2020-12-26] MEDS: Magnesium Oxide 400 MG Tab PO SCH (21:17)
[2020-12-27] MEDS: ceFAZolin 1 GM Vial IVPUSH SCH ×3 (04:17→20:49)
[2020-12-27 07:53] LABS: ANION GAP 11.6 mmol/L (5-15); CHLORIDE,CL 104 mmol/L (98-107); SODIUM,NA 139 mmol/L (136-145)
[2020-12-27] MEDS ORDERED: Lisinopril 20 MG Tab PO SCH (08:00)
[2020-12-27] MEDS ORDERED: Furosemide 40 MG Tab PO SCH (08:00)
[2020-12-27] MEDS: Docusate Sodium 100 MG Cap PO SCH ×2 (08:27→20:48)
[2020-12-27] MEDS: amLODIPine 2.5 MG Tab PO SCH (08:27)
[2020-12-27] MEDS: Acetaminophen 500 MG Tab PO SCH ×3 (08:28→20:48)
[2020-12-27] MEDS: Lisinopril 20 MG Tab PO SCH (08:28)
[2020-12-27] MEDS: Aspirin 325 MG Tab.EC PO SCH ×2 (08:28→20:48)
[2020-12-27] MEDS: Furosemide 20 MG Tab PO SCH (08:28)
[2020-12-27] MEDS: Cyclobenzaprine 10 MG Tab PO PRN (08:28)
[2020-12-27] MEDS: Sennosides 8.6 MG Tab PO SCH ×2 (08:28→20:48)
[2020-12-27] MEDS: Potassium Chloride 10 MEQ Tab.ER PO SCH ×2 (08:28→17:28)
[2020-12-27] MEDS: Multivitamins with Iron/Calcium/Folic Acid/Minerals Tab PO SCH (08:29)
[2020-12-27] MEDS: Magnesium Oxide 400 MG Tab PO SCH ×2 (08:29→20:49)
[2020-12-27] MEDS ORDERED: Non-Formulary Medication 1 Each INH PRN (08:29)
--- NOTE | 2020-12-27 10:30 | CR ---
[id number] RAD/RAD Chest PA And Lateral EXAM: RAD Chest PA And Lateral CLINICAL DATA: COUGH COMPARISON: CORRELATION IS MADE WITH FEBRUARY 23, 2020 FINDINGS: The lungs are clear. The cardiomediastinal contour is enlarged but stable. The regional bones and soft tissues are unremarkable. IMPRESSION: NO ACUTE PROCESS. Jamil Bennett MD 12/27/20 0369 Thank you for allowing us to participate in the care of your patient.
[2020-12-27] MEDS ORDERED: COMBIVENT RESPIMAT PO PRN (10:58)
[2020-12-27] MEDS: Sodium Chloride 0.9% 10 ML Syringe FLUSH PRN (11:22)
[2020-12-27] MEDS: Acetaminophen/HYDROcodone 325-5 MG Tab PO PRN ×2 (11:23→20:47)
--- NOTE | 2020-12-27 11:30 | PN ---
Progress Note for HANNAH MCFARLAND Date: 12/27/2020 Room #: VM.217 SUBJECTIVE: This is hospital day acute #2 on a 70-year-old admitted postoperative day #1 for a left elective knee replacement, but with increasing redness, pain, and warmth. Yesterday, she was placed on acute care and IV Ancef. Her pain is much better. She has been afebrile. Her white count improved. Inflammatory markers stayed about the same. She has been coughing really since arrival. She is a smoker. She has used her Combivent just once. She has been borderline hypoxic with O2 saturations in the 90s and has not really felt short of breath. We have had her on incentive spirometry. She has been on aspirin for DVT prophylaxis. She is having some more bruising in that left leg today, but the swelling seems a little better. OBJECTIVE: Vital Signs: Her temperature this morning is 97.8, pulse 84, blood pressure 161/60, respiratory rate 19, and O2 of 92 on room air. Weight 88.4 kg. General: She is in no acute distress. Heart: Regular rate and rhythm. S1, S2 without murmur. Lungs: Sounds are showing some rare expiratory wheezes, otherwise no crackles. Abdomen: Nondistended, nontender. Extremities: Warm and dry. Picture was again taken of that left leg. The redness is much improved. The warmth is improved. There is just some bloody discharge from her incision staple line. The redness is regressed since yesterday. Mental status: She is alert and orientated x3. LABORATORY DATA: Shows a white count 10.9, hemoglobin 12.6, platelets 252. Sodium 139, potassium 3.6, chloride 104, bicarb 27, BUN 14, creatinine 0.7, glucose 97, calcium 8.6, CRP 17. ASSESSMENT AND PLAN: 1. Postoperative from a left elective knee replacement on 12/24/2020, with concern for cellulitis. 2. Left lower extremity cellulitis. 3. Essential hypertension, not well controlled. Amlodipine low dose added last night and Lasix has already been increased to 20 mg everyday yesterday. 4. Smoking. 5. Coughing, probably underlying chronic obstructive pulmonary disease with history of smoking. 6. Deep vein thrombosis prophylaxis, on aspirin. 7. Chronic diastolic heart failure, on Lasix. 8. Obesity. 9. Myasthenia gravis, in remission. PLAN: At this point, the patient will continue on acute cares with IV Ancef. We will repeat lab work tomorrow. We will get a chest x-ray today. I will start her on scheduled and p.r.n. nebs. I will also reach out to her orthopedic doctor to see if further workup or potential transfer are indicated. She will also be up and working with therapies. MKA: 12/27/2020 10:51:15 MODL: 12/27/2020 11:21:39 /[id number]
[2020-12-27] MEDS: Albuterol/Ipratropium 3.0-0.5 MG/3 ML Neb Soln NEB SCH ×2 (13:03→20:49)
[2020-12-28] MEDS: ceFAZolin 1 GM Vial IVPUSH SCH ×3 (04:10→20:34)
[2020-12-28] MEDS: Acetaminophen/HYDROcodone 325-5 MG Tab PO PRN (04:20)
[2020-12-28] MEDS: Albuterol/Ipratropium 3.0-0.5 MG/3 ML Neb Soln NEB SCH ×3 (07:02→20:35)
[2020-12-28 07:11] LABS: CHLORIDE,CL 107 mmol/L (98-107); SODIUM,NA 141 mmol/L (136-145)
[2020-12-28 07:12] LABS: ANION GAP 11.9 mmol/L (5-15)
[2020-12-28] MEDS: Potassium Chloride 10 MEQ Tab.ER PO SCH ×2 (09:24→17:11)
[2020-12-28] MEDS: Acetaminophen 500 MG Tab PO SCH ×3 (09:25→20:34)
[2020-12-28] MEDS: Furosemide 20 MG Tab PO SCH ×3 (09:25→17:11)
[2020-12-28] MEDS: Multivitamins with Iron/Calcium/Folic Acid/Minerals Tab PO SCH (09:26)
[2020-12-28] MEDS: Magnesium Oxide 400 MG Tab PO SCH ×2 (09:26→20:34)
[2020-12-28] MEDS: Sennosides 8.6 MG Tab PO SCH ×2 (09:26→20:34)
[2020-12-28] MEDS: Lisinopril 20 MG Tab PO SCH (09:26)
[2020-12-28] MEDS: amLODIPine 2.5 MG Tab PO SCH (09:26)
[2020-12-28] MEDS: Docusate Sodium 100 MG Cap PO SCH ×2 (09:26→20:34)
[2020-12-28] MEDS: Aspirin 325 MG Tab.EC PO SCH (09:27)
--- NOTE | 2020-12-28 13:24 | PN ---
Progress Note for HANNAH MCFARLAND Date: 12/28/2020 Room #: VM.217 SUBJECTIVE: This is hospital day #3 on a 70-year-old admitted postoperative from a left elective knee replacement on 12/24/2020 but started with redness, then worsening redness and warmth on Sunday. She was started on IV Ancef. She was never febrile, just temperatures in the 99 and the redness has significantly improved. The pain is improved. In fact, she is only using 1 to 2 pain pills a day of the 5 mg of hydrocodone. She is progressing well with therapies. OT is working with her currently. She has still some swelling in the leg, but it is improved, but she is having increasing bruising. She has been on aspirin for DVT prophylaxis, which is what she did with her last knee replacement, that one went well. She has had some hypoxia and coughing. Chest x-ray was okay yesterday. She has been getting scheduled nebulizers, and she does not think they are helping, but she is coughing noticeably less already today and her saturations are slightly improved. Her blood pressure has still been running higher despite started on the amlodipine and increasing to once daily Lasix. She had a couple bowel movements after I rounded this AM per the nurse. OBJECTIVE: Vital Signs: Her temperature 99.2, pulse 92, blood pressure 147/77, respiratory rate 22, and O2 of 91 on room air, recheck 93 on room air. Weight 90.3 kg, which is up a couple of pounds. General: She is in no acute distress. Heart: Regular rate and rhythm. There is no wheezing present today. Lungs: Her lungs sounds are clear to auscultation. Abdomen: Nondistended, nontender. Positive bowel sounds. Extremities: Warm and dry. Dressing in place with less drainage today. There has been some bloody discharge about mid incision, but there is noticeable bruising but no redness, no warmth. Her both feet are warm and dorsal pedis pulses 2+. No calf tenderness. Mental Status: Alert and orientated x3. LABORATORY DATA: Lab work today does show her white count down to 9.6, hemoglobin 11.9, and platelets 260. Sodium 141, potassium 3.9, chloride 107, bicarbonate 26, BUN 18, creatinine 0.7, glucose 99, calcium 8.5, and BNP mildly elevated at 137. ASSESSMENT: 1. Postoperative from a left elective knee replacement on 12/24/2020 with concerns for early cellulitis. We will continue intravenous Ancef today and consult further with her surgeon and Infectious Disease on duration of antibiotics. The patient is hopeful to return home soon, maybe even this Sunday. 2. Lower extremity cellulitis, improving on the intravenous Ancef. 3. Essential hypertension, not well controlled. We will continue amlodipine, and I will increase her Lasix to 20 mg twice daily. 4. Bruising. For deep venous thrombosis prophylaxis, I am going to stop the aspirin and I will put her on sequential compression devices and thigh-high stockings. 5. Smoking. 6. Coughing with underlying emphysema but no chronic obstructive pulmonary disease exacerbation. We will keep her on some scheduled and p.r.n. nebulizers. 7. Chronic diastolic heart failure, on Lasix. She is not having any active heart failure concerns given her low proBNP, just mildly elevated. 8. Obesity. 9. Myasthenia gravis, in remission. PLAN: At this point, the patient will continue acute cares with IV Ancef. We will get lab work again tomorrow including another inflammatory marker. She already has some followup with Orthopedics on 01/06/2021. She will continue working with therapies and hopefully transition over to oral antibiotics and home in the next days to week. MKA: 12/28/2020 12:29:52 MODL: 12/28/2020 13:18:43 /[id number] BERNARDA
[2020-12-29] MEDS: Acetaminophen/HYDROcodone 325-5 MG Tab PO PRN (02:32)
[2020-12-29] MEDS: ceFAZolin 1 GM Vial IVPUSH SCH ×3 (04:08→19:53)
[2020-12-29] MEDS: Albuterol/Ipratropium 3.0-0.5 MG/3 ML Neb Soln NEB SCH ×3 (06:14→19:53)
[2020-12-29 07:41] LABS: ANION GAP 15.5 mmol/L (5-15); CHLORIDE,CL 105 mmol/L (98-107); SODIUM,NA 141 mmol/L (136-145)
[2020-12-29] MEDS: Docusate Sodium 100 MG Cap PO SCH ×2 (09:16→19:53)
[2020-12-29] MEDS: Magnesium Oxide 400 MG Tab PO SCH ×2 (09:16→19:53)
[2020-12-29] MEDS: Multivitamins with Iron/Calcium/Folic Acid/Minerals Tab PO SCH (09:16)
[2020-12-29] MEDS: Furosemide 40 MG Tab PO SCH ×2 (09:16→16:53)
[2020-12-29] MEDS: Potassium Chloride 10 MEQ Tab.ER PO SCH ×2 (09:16→18:33)
[2020-12-29] MEDS: amLODIPine 2.5 MG Tab PO SCH (09:17)
[2020-12-29] MEDS: Lisinopril 20 MG Tab PO SCH (09:17)
[2020-12-29] MEDS: Acetaminophen 500 MG Tab PO SCH ×3 (09:17→19:54)
[2020-12-29] MEDS: Sennosides 8.6 MG Tab PO SCH ×2 (09:17→19:53)
--- NOTE | 2020-12-29 17:15 | PN ---
Progress Note for HANNAH MCFARLAND Date: 12/29/2020 Room #: VM.217 SUBJECTIVE: This is hospital day #4 on a 70-year-old admitted with a postoperative infection surrounding her wound and early cellulitis that has responded well to IV Ancef. She has been afebrile. Her pain is under excellent control. She has had some higher blood pressure readings, but she reports she does not feel like she has high blood pressure. She is a smoker. She has some nicotine lozenges. The patient continues to cough but is not short of breath. She is not requiring any oxygen. She has been having bowel movements. She has been eating 50% to 100% of her meals, and she has been afebrile. OBJECTIVE: Vital Signs: This morning, her temperature 98, pulse 94, blood pressure 176/72, respiratory rate 16, O2 of 91% on room air. The patient does blame the automatic monitor. We recommended some manual checks and a wrist check later in the day was 110/66. Heart: Regular rate and rhythm. S1, S2 without murmur. Lungs: Her lung sounds were clear to auscultation bilaterally without crackles or wheezes, but she had just coughed that likely cleared out any adventitious lung sounds, and she is using incentive spirometry. Extremities: Warm and dry. She does have significant bruising still on that left knee with staple line in place, just minimal bloody drainage on her dressing. There is some minimal redness more inferior. It is just mildly warm. She has good range of motion. She has good dorsal pedis pulses. No calf tenderness. Mental Status: She is alert and orientated x3. LABORATORY DATA: Her lab work today did show her to have a white count 11.2, hemoglobin 12.7, platelets 285. ESR down to 44. Sodium 141, potassium 4.5, chloride 105, bicarb 25, BUN 15, creatinine 0.8, glucose 98, calcium 9.1. ProBNP yesterday mildly elevated at 137. ASSESSMENT AND PLAN: 1. Postoperative from a left elective knee replacement on 12/24/2020 with some concerns for early cellulitis. Per Ortho and ID, we will continue the IV Ancef until 12/31/2020, and discharge her home on another three days of amoxicillin. 2. Lower extremity cellulitis, improving with Ancef. 3. Essential hypertension, not well-controlled. I increased her Lasix to 40 mg twice daily and her blood pressure was better by the afternoon. We will continue to monitor it. 4. Bruising. She is off the high-dose aspirin. We will start her on low-dose 81 mg tomorrow and use the support stockings and SCDs for DVT prophylaxis. 5. Smoking. The patient did state she might restart when she goes home. She was discouraged not to start smoking again. 6. Coughing and underlying emphysema. She has nebulizers available. 7. Chronic diastolic heart failure. She is on Lasix. 8. Obesity. 9. Myasthenia gravis, in remission. At this point, the patient will continue acute cares with IV Ancef. We will get lab work again before her discharge home Sunday. We will continue the IV antibiotics. She will follow up with Orthopedics on 01/06/2021. We will continue her work with therapy. MKA: 12/29/2020 16:48:01 MODL: 12/29/2020 17:08:29 /[id number]
[2020-12-30] MEDS: Acetaminophen/HYDROcodone 325-5 MG Tab PO PRN (04:23)
[2020-12-30] MEDS: ceFAZolin 1 GM Vial IVPUSH SCH ×3 (04:25→19:44)
[2020-12-30] MEDS: Albuterol/Ipratropium 3.0-0.5 MG/3 ML Neb Soln NEB SCH ×3 (07:00→19:45)
[2020-12-30] MEDS: Aspirin 81 MG Tab.Chew PO SCH (07:32)
[2020-12-30] MEDS: Multivitamins with Iron/Calcium/Folic Acid/Minerals Tab PO SCH (07:32)
[2020-12-30] MEDS: Docusate Sodium 100 MG Cap PO SCH ×2 (07:33→19:47)
[2020-12-30] MEDS: amLODIPine 2.5 MG Tab PO SCH (07:33)
[2020-12-30] MEDS: Sennosides 8.6 MG Tab PO SCH ×2 (07:33→19:45)
[2020-12-30] MEDS: Furosemide 40 MG Tab PO SCH ×2 (07:33→17:11)
[2020-12-30] MEDS: Magnesium Oxide 400 MG Tab PO SCH ×2 (07:33→19:46)
[2020-12-30] MEDS: Lisinopril 20 MG Tab PO SCH (07:34)
[2020-12-30] MEDS: Acetaminophen 500 MG Tab PO SCH ×3 (07:34→19:45)
[2020-12-30] MEDS: Potassium Chloride 10 MEQ Tab.ER PO SCH ×2 (07:34→17:11)
[2020-12-30] MEDS: Sodium Chloride 0.9% 10 ML Syringe FLUSH PRN ×2 (11:59→19:47)
--- NOTE | 2020-12-30 17:45 | PN ---
Progress Note for HANNAH MCFARLAND Date: 12/30/2020 Room #: VM.217 SUBJECTIVE: This is hospital day #5 on a 70-year-old admitted after an elective left knee replacement, but now with concern for cellulitis. However, her joint has not had any increased swelling as compared to the rest of her leg. She did have a lot of bruising, so was taken off twice a day aspirin and is now on just 81 mg daily. She does have some calf pain, but her Homans sign with plantarflexion and dorsiflexion was okay. Blood pressure continues to be high this morning, but she does not feel like it is high, it was better yesterday afternoon. She has not had any fever or chills. Her cough and breathing are better. She has a long history of smoking. She is on scheduled nebulizers, but has not used any p.r.n. OBJECTIVE: Vital Signs: Her weight is 89.63 kg, her temperature is 98.2, pulse 91, blood pressure 169/72, respiratory rate 17, O2 of 95% on room air. General: She is in no acute distress. Heart: Regular rate and rhythm. S1, S2 without murmur. Lungs: Lung sounds are clear to auscultation bilaterally without crackles or wheezes. Extremities: Warm and dry. Again, notable bruising on that left knee. She has good range of motion. She can achieve 90 degrees of flexion and full extension. She does have some tenderness to her calf and anterior carter, but does not have joint effusion. No increased pain with dorsiflexion. Mental Status: She is alert and orientated x3. ASSESSMENT AND PLAN: 1. Postoperative from a left elective knee replacement with overlying cellulitis which occurred rather acutely, already with increased pain and potentially it was present on the 12/25/2020 but started antibiotics due to worsening redness and warmth on 12/26/2020. She has been on IV Ancef and the redness and pain have improved. 2. Lower extremity cellulitis, improving with Ancef. She will get her last dose tomorrow and go home on amoxicillin to complete the course on Sunday. 3. Essential hypertension. Blood pressure still high. She is on increased Lasix. She is on amlodipine and lisinopril. We will continue with the same. 4. Bruising. She is on now just 81 daily of aspirin. 5. Deep venous thrombosis prophylaxis. Due to significant bruising, she will stay on 81 mg of aspirin. 6. Smoking. She has not been smoking here. She is encouraged to quit. 7. Coughing and underlying emphysema. 8. Chronic diastolic heart failure, stable without exacerbation, but on Lasix. 9. Obesity. 10.Myasthenia gravis, in remission. At this point, the patient will continue acute cares. She is extending beyond 96 hrs but that is due to IV ABX and further PT needed and a discharge plan in place for tomorrow. We will get her lab work again then. We will have her on IV Ancef until d/c and home on amoxicillin, to follow up with me in the clinic early next week potentially, but definitely she has a followup with Orthopedics on 01/06/2021. She will have Home Health on discharge. MKA: 12/30/2020 17:19:15 MODL: 12/30/2020 17:33:49 /[id number] BERNARDA
[2020-12-30] MEDS: Cyclobenzaprine 10 MG Tab PO PRN (21:41)
[2020-12-31] MEDS: ceFAZolin 1 GM Vial IVPUSH SCH ×2 (04:59→11:16)
[2020-12-31] MEDS: Albuterol/Ipratropium 3.0-0.5 MG/3 ML Neb Soln NEB SCH (06:28)
[2020-12-31 06:48] LABS: ANION GAP 13.6 mmol/L (5-15); CHLORIDE,CL 103 mmol/L (98-107); SODIUM,NA 138 mmol/L (136-145)
[2020-12-31] MEDS: Potassium Chloride 10 MEQ Tab.ER PO SCH (07:58)
[2020-12-31] MEDS: Docusate Sodium 100 MG Cap PO SCH (07:58)
[2020-12-31] MEDS: amLODIPine 2.5 MG Tab PO SCH (07:58)
[2020-12-31] MEDS: Magnesium Oxide 400 MG Tab PO SCH (07:59)
[2020-12-31] MEDS: Sennosides 8.6 MG Tab PO SCH (07:59)
[2020-12-31] MEDS: Furosemide 40 MG Tab PO SCH (07:59)
[2020-12-31] MEDS: Aspirin 81 MG Tab.Chew PO SCH (07:59)
[2020-12-31] MEDS: Lisinopril 20 MG Tab PO SCH (07:59)
[2020-12-31] MEDS: Acetaminophen/HYDROcodone 325-5 MG Tab PO PRN (07:59)
[2020-12-31] MEDS: Multivitamins with Iron/Calcium/Folic Acid/Minerals Tab PO SCH (08:00)
[2020-12-31] MEDS: Acetaminophen 500 MG Tab PO SCH ×2 (08:00→11:16)
--- NOTE | 2020-12-31 18:13 | DISCH ---
PRIMARY DISCHARGE DIAGNOSES: 1. Cellulitis after an elective left knee replacement. 2. Postoperative from a left elective knee replacement, starting on antibiotics, postoperative day 2. 3. Essential hypertension with elevated blood pressures, improved with medication changes. 4. Smoking, she has been off cigarettes here. 5. Significant bruising on high-dose aspirin, decreased to 81 mg daily, improved on discharge. 6. Emphysema. She is on Combivent. We gave her scheduled nebs here. Her hypoxia and cough have improved. She had a chest x-ray that did not show any acute findings. 7. Chronic diastolic heart failure, stable without exacerbation, but due to elevated blood pressures did require increasing doses of Lasix to 40 twice daily. ProBNP was 137 during her stay. 8. Obesity. 9. Myasthenia gravis, in remission. REASON FOR ADMISSION: On the date of admission, this 70-year-old female actually came postoperative day 1 for self-pay swing bed. However, she was in significant pain that just started prior to arrival, was thinking there were some spasms from the transfer in surgery and PT, but she had a right knee replacement last year without similar problems. The patient was given narcotics and Flexeril and it did help with pain. However, by the next day, the incision was even more red. There was just some bloody drainage. There was warmth and decision was made to start her on IV antibiotics. She was started on IV Ancef 2 g q.8 hours under the direction of Infectious Disease and Orthopedics with decision that she would continue on IV antibiotics well on acute care and receiving swing bed until she was able to return home independently. The patient received her last dose just prior to discharge at noon today. She otherwise was having good pain control, taking maybe just 1 narcotic during the night, sometimes a second pill throughout the day. She was working with Therapy. She completed OT, but it was felt that she could benefit from PT on Home Health. DISCHARGE PLANS AND INSTRUCTIONS: The patient will follow up with Dr. Jesse harper on 01/04/2021 and Home Health will be following and can get her vitals. She will also follow up with Orthopedics on 01/06/2021. This will be for her staple removal. She will be on increased doses of Lasix from 40 every other day to 40 twice daily. She will be back on amlodipine 2.5 mg daily and she will continue lisinopril for blood pressure. She will continue on 81 mg of aspirin for DVT prophylaxis. Flexeril was also prescribed for pain along with her hydrocodone, which she did have 15 pills left from her supply she brought from [place]. She should not return to smoking. She was tried on support stockings. She did not like them. She also did not like icing the knee, which probably contributed somewhat to the bruising. She will elevate her leg to help with swelling and work with Therapies on Home Health. She will take potassium daily along with magnesium supplements and senna if needed for constipation. The patient will be on Augmentin 500 three times a day for 8 more doses. PHYSICAL EXAMINATION: Vital Signs: Discharging vitals include a temperature of 98.2, pulse 98, blood pressure 143/76, respiratory rate 16, and O2 of 96% on room air. General: She is in no acute distress. Heart: Regular rate and rhythm. S1, S2 without murmur. Lungs: Lung sounds are clear to auscultation bilaterally without crackles or wheezes. Abdomen: Positive bowel sounds. Soft, nondistended, nontender. Extremities: Warm and dry. She has just trace edema to that left ankle. There is no tenderness on the calf today. The bruising is resolving. The redness has resolved. There is no warmth. Mental Status: She is alert and orientated x3. Qoti-ou-tdto encounter occurred with myself on 12/31/2020. The primary reason for home health is for teaching and assessments by Nursing to monitor for her incision for any infection as well as PT to help with mobility and OT to help with ADLs and home safety. The patient is homebound due to a recent event of a knee replacement and she needs the assistance of another person to leave her home. She also is using a walker. I will periodically review this plan of care. Greater 30 minutes spent on the discharge process. MKA: 12/31/2020 17:22:57 MODL: 12/31/2020 18:08:36 /[id number]
== END 2020-12-31 11:25 | disposition home health service (06) | DRG 560 ==
LOC: VM.MS 11:18
PROVIDERS: ADMIT Internal Medicine; ATTEND Internal Medicine
DX: T84.54XA Infection and inflammatory reaction due to internal left knee prosthesis, initial encounter (principal); L03.116 Cellulitis of left lower limb; I50.32 Chronic diastolic (congestive) heart failure; Y83.8 Other surgical procedures as the cause of abnormal reaction of the patient, or of later complication, without mention of misadventure at the time of the procedure; F17.210 Nicotine dependence, cigarettes, uncomplicated; I11.0 Hypertensive heart disease with heart failure; J43.9 Emphysema, unspecified; E66.9 Obesity, unspecified; Z96.651 Presence of right artificial knee joint; G70.00 Myasthenia gravis without (acute) exacerbation; Z91.041 Radiographic dye allergy status; Z91.048 Other nonmedicinal substance allergy status; Z90.49 Acquired absence of other specified parts of digestive tract; Z79.82 Long term (current) use of aspirin; Z98.890 Other specified postprocedural states
CPT/HCPCS: 36415; 71046; 80048; 83735; 83880; 85025; 85652; 86140; 94640; 97110-GP; 97116-GP; 97140-GP; 97163-GP; 97165-GO; 97530-GP; 97535-GO; A9270-GY; J0690; J7620-GY

== ENCOUNTER 2025-04-29 12:21 | Inpatient (IN) | payer MEDICAID, MEDICARE ==
[2025-04-29 13:11] LABS: PLATELET COUNT,PLT 203 x10^3/uL (130-400); RED BLOOD CELL COUNT 5.47 x10^6/uL (4.00-5.50)
[2025-04-29 13:12] LABS: WHITE BLOOD CELL COUNT,WBC 21.8 x10^3/uL (4.0-10.0)
[2025-04-29 13:29] LABS: BAND PERCENT MAN 2 % (0-6); LYMPHOCYTES ABSOLUTE MAN 1.3 x10^3/uL (1.0-4.8); LYMPHOCYTES PERCENT MAN 6 % (25-50); MONOCYTES ABSOLUTE MAN 0.9 x10^3/uL (0.0-0.8); MONOCYTES PERCENT MAN 4 % (2-11); NEUTROPHILS ABSOLUTE MAN 19.6 x10^3/uL (1.8-7.7); PLATELET COUNT ESTIMATE ADEQUATE; SEG NEUTROPHILS PERCENT MAN 88 % (50-80)
[2025-04-29 13:35] LABS: ALANINE AMINOTRANSFERASE,ALT 14 U/L (14-59); ASPARTATE AMNIOTRANSFERASE,AST 21 U/L (15-37); BILIRUBIN TOTAL 0.9 mg/dL (0.2-1.0); BLOOD UREA NITROGEN,BUN 36 mg/dL (7-18); CARBON DIOXIDE,CO2 24 mmol/L (21-32); CREATININE 1.4 mg/dL (0.55-1.02); GLUCOSE RANDOM 131 mg/dL (70-99); PROTEIN TOTAL,TP 8.2 g/dL (6.4-8.2)
[2025-04-29 13:43] LABS: CHLORIDE,CL 95 mmol/L (98-107); ESTIMATED GFR 39 mL/min (>=60); POTASSIUM,K 3.8 mmol/L (3.5-5.1); SODIUM,NA 130 mmol/L (136-145)
[2025-04-29 13:48] LABS: A/G RATIO 0.58
[2025-04-29] MEDS: Lactated Ringers 1,000 ML IV SCH (13:49)
[2025-04-29 14:06] LABS: HCO3 VENOUS,POC 26 mmol/L (22-29); O2 SATURATION VENOUS,POC 87 %; PCO2 VENOUS,POC 44 mmHg (41-51); PH VENOUS,POC 7.37 pH (7.32-7.43); PO2 VENOUS,POC 55 mmHg
[2025-04-29 14:57] LABS: APPEARANCE,URINE SLIGHTLY CLOUDY (CLEAR); GLUCOSE,URINE NEGATIVE (NEGATIVE); OCCULT BLOOD,URINE MODERATE (NEGATIVE)
[2025-04-29 15:18] LABS: SQUAMOUS EPITHELIAL CELLS,UR RARE /HPF (NOT SEEN)
[2025-04-29] MEDS: Ondansetron 4 MG/2 ML SDV IVPUSH ONE (16:00)
[2025-04-29] MEDS ORDERED: Ondansetron 4 MG Tab.DIS PO PRN (16:53)
[2025-04-29] MEDS: Furosemide 40 MG/4 ML VIAL IV ONE (18:12)
[2025-04-29] MEDS ORDERED: Miconazole 2% Top Powder 45 GM Container TOP SCH (21:00)
[2025-04-29] MEDS: Miconazole 2% Top Powder 45 GM Container TOP SCH (21:05)
[2025-04-30 06:53] LABS: PLATELET COUNT,PLT 197 x10^3/uL (130-400); RED BLOOD CELL COUNT 4.74 x10^6/uL (4.00-5.50); WHITE BLOOD CELL COUNT,WBC 18.2 x10^3/uL (4.0-10.0)
[2025-04-30 07:17] LABS: BAND PERCENT MAN 1 % (0-6); LYMPHOCYTES ABSOLUTE MAN 2.4 x10^3/uL (1.0-4.8); LYMPHOCYTES PERCENT MAN 13 % (25-50); MONOCYTES ABSOLUTE MAN 0.7 x10^3/uL (0.0-0.8); MONOCYTES PERCENT MAN 4 % (2-11); NEUTROPHILS ABSOLUTE MAN 15.1 x10^3/uL (1.8-7.7); PLATELET COUNT ESTIMATE ADEQUATE; SEG NEUTROPHILS PERCENT MAN 82 % (50-80)
[2025-04-30 07:18] LABS: A/G RATIO 0.57; ALANINE AMINOTRANSFERASE,ALT 35.0 U/L (14-59); ASPARTATE AMNIOTRANSFERASE,AST 47.0 U/L (15-37); BILIRUBIN TOTAL 1.6 mg/dL (0.2-1.0); BLOOD UREA NITROGEN,BUN 25.0 mg/dL (7-18); CARBON DIOXIDE,CO2 28.0 mmol/L (21-32); CHLORIDE,CL 101.0 mmol/L (98-107); CREATININE 1.0 mg/dL (0.55-1.02); EST CRCL DRUG DOSING (CG) 35.45 mL/min; GLUCOSE RANDOM 123.0 mg/dL (70-99); POTASSIUM,K 3.0 mmol/L (3.5-5.1); PROTEIN TOTAL,TP 6.9 g/dL (6.4-8.2); SODIUM,NA 140.0 mmol/L (136-145); VANCOMYCIN RANDOM 7.0 ug/mL (5.0-10.0)
[2025-04-30 07:20] LABS: ESTIMATED GFR 59.0 mL/min (>=60)
[2025-04-30] MEDS: Potassium Chloride 20 MEQ Tab.ER PO SCH (09:43)
[2025-04-30] MEDS: VANCOmycin 1.25 GM/250 ML 250 ML IV SCH (15:38)
[2025-05-01 10:12] LABS: BASOPHILS ABSOLUTE AUTO 0.0 x10^3/uL (0.0-0.2); BASOPHILS PERCENT AUTO 0.3 % (0.2-1.2); EOSINOPHILS ABSOLUTE AUTO 0.1 x10^3/uL (0.0-0.5); EOSINOPHILS PERCENT AUTO 0.8 % (0.0-4.0); IMMATURE GRAN ABSOLUTE AUTO 0.04 x10^3/uL (0.00-0.07); IMMATURE GRAN PERCENT AUTO 0.30 % (0.00-0.43); LYMPHOCYTES ABSOLUTE AUTO 1.4 x10^3/uL (1.0-4.8); LYMPHOCYTES PERCENT AUTO 11.4 % (25.0-50.0); MONOCYTES ABSOLUTE AUTO 0.8 x10^3/uL (0.0-0.8); MONOCYTES PERCENT AUTO 6.7 % (2.0-11.0); NEUTROPHILS ABSOLUTE AUTO 9.9 x10^3/uL (1.8-7.7); NEUTROPHILS PERCENT AUTO 80.5 % (50.0-80.0); PLATELET COUNT,PLT 205 x10^3/uL (130-400); RED BLOOD CELL COUNT 4.34 x10^6/uL (4.00-5.50); WHITE BLOOD CELL COUNT,WBC 12.2 x10^3/uL (4.0-10.0)
[2025-05-01 10:21] LABS: A/G RATIO 0.5; ALANINE AMINOTRANSFERASE,ALT 59.0 U/L (14-59); ASPARTATE AMNIOTRANSFERASE,AST 74.0 U/L (15-37); BILIRUBIN TOTAL 1.3 mg/dL (0.2-1.0); BLOOD UREA NITROGEN,BUN 18.0 mg/dL (7-18); CARBON DIOXIDE,CO2 29.0 mmol/L (21-32); CHLORIDE,CL 105.0 mmol/L (98-107); CREATININE 0.8 mg/dL (0.55-1.02); EST CRCL DRUG DOSING (CG) 44.31 mL/min; GLUCOSE RANDOM 98.0 mg/dL (70-99); POTASSIUM,K 4.0 mmol/L (3.5-5.1); PROTEIN TOTAL,TP 6.0 g/dL (6.4-8.2); SODIUM,NA 141.0 mmol/L (136-145)
[2025-05-01 10:24] LABS: ESTIMATED GFR 77.0 mL/min (>=60)
[2025-05-01] MEDS: Furosemide 40 MG/4 ML VIAL IV ONE (11:53)
[2025-05-01] MEDS: Menthol/Zinc Oxide Ointment 3.5 GM Tube TOP PRN (14:23)
[2025-05-03 07:38] LABS: BASOPHILS ABSOLUTE AUTO 0.0 x10^3/uL (0.0-0.2); BASOPHILS PERCENT AUTO 0.1 % (0.2-1.2); EOSINOPHILS ABSOLUTE AUTO 0.0 x10^3/uL (0.0-0.5); EOSINOPHILS PERCENT AUTO 0.0 % (0.0-4.0); IMMATURE GRAN ABSOLUTE AUTO 0.11 x10^3/uL (0.00-0.07); IMMATURE GRAN PERCENT AUTO 0.70 % (0.00-0.43); LYMPHOCYTES ABSOLUTE AUTO 1.8 x10^3/uL (1.0-4.8); LYMPHOCYTES PERCENT AUTO 11.2 % (25.0-50.0); MONOCYTES ABSOLUTE AUTO 0.8 x10^3/uL (0.0-0.8); MONOCYTES PERCENT AUTO 5.1 % (2.0-11.0); NEUTROPHILS ABSOLUTE AUTO 13.2 x10^3/uL (1.8-7.7); NEUTROPHILS PERCENT AUTO 82.9 % (50.0-80.0); PLATELET COUNT,PLT 294 x10^3/uL (130-400); RED BLOOD CELL COUNT 4.53 x10^6/uL (4.00-5.50); WHITE BLOOD CELL COUNT,WBC 16.0 x10^3/uL (4.0-10.0)
[2025-05-03 08:00] LABS: ALANINE AMINOTRANSFERASE,ALT 37.0 U/L (14-59); ASPARTATE AMNIOTRANSFERASE,AST 23.0 U/L (15-37); BILIRUBIN TOTAL 0.4 mg/dL (0.2-1.0); BLOOD UREA NITROGEN,BUN 15.0 mg/dL (7-18); CARBON DIOXIDE,CO2 28.0 mmol/L (21-32); CHLORIDE,CL 103.0 mmol/L (98-107); GLUCOSE RANDOM 142.0 mg/dL (70-99); POTASSIUM,K 3.4 mmol/L (3.5-5.1); PROTEIN TOTAL,TP 6.6 g/dL (6.4-8.2); SODIUM,NA 139.0 mmol/L (136-145)
[2025-05-03 08:32] LABS: CREATININE 0.8 mg/dL (0.55-1.02); EST CRCL DRUG DOSING (CG) 44.31 mL/min
[2025-05-03 08:42] LABS: ESTIMATED GFR 77.0 mL/min (>=60)
[2025-05-03 08:45] LABS: A/G RATIO 0.4
[2025-05-03] MEDS ORDERED: Albuterol 0.083% 2.5 MG/3 ML Neb Soln NEB PRN (12:57)
[2025-05-03] MEDS: Sennosides/Docusate Sodium 50-8.6 MG Tab PO SCH (13:39)
[2025-05-04 06:40] LABS: BASOPHILS ABSOLUTE AUTO 0.0 x10^3/uL (0.0-0.2); BASOPHILS PERCENT AUTO 0.2 % (0.2-1.2); EOSINOPHILS ABSOLUTE AUTO 0.1 x10^3/uL (0.0-0.5); EOSINOPHILS PERCENT AUTO 0.5 % (0.0-4.0); IMMATURE GRAN ABSOLUTE AUTO 0.22 x10^3/uL (0.00-0.07); IMMATURE GRAN PERCENT AUTO 1.50 % (0.00-0.43); LYMPHOCYTES ABSOLUTE AUTO 3.4 x10^3/uL (1.0-4.8); LYMPHOCYTES PERCENT AUTO 22.9 % (25.0-50.0); MONOCYTES ABSOLUTE AUTO 0.9 x10^3/uL (0.0-0.8); MONOCYTES PERCENT AUTO 6.2 % (2.0-11.0); NEUTROPHILS ABSOLUTE AUTO 10.2 x10^3/uL (1.8-7.7); NEUTROPHILS PERCENT AUTO 68.7 % (50.0-80.0); PLATELET COUNT,PLT 356 x10^3/uL (130-400); RED BLOOD CELL COUNT 4.28 x10^6/uL (4.00-5.50); WHITE BLOOD CELL COUNT,WBC 14.9 x10^3/uL (4.0-10.0)
[2025-05-04 07:02] LABS: A/G RATIO 0.44; ALANINE AMINOTRANSFERASE,ALT 31.0 U/L (14-59); ASPARTATE AMNIOTRANSFERASE,AST 17.0 U/L (15-37); BILIRUBIN TOTAL 0.3 mg/dL (0.2-1.0); BLOOD UREA NITROGEN,BUN 16.0 mg/dL (7-18); CARBON DIOXIDE,CO2 30.0 mmol/L (21-32); CREATININE 0.7 mg/dL (0.55-1.02); EST CRCL DRUG DOSING (CG) 50.65 mL/min; GLUCOSE RANDOM 105.0 mg/dL (70-99); PROTEIN TOTAL,TP 6.2 g/dL (6.4-8.2); SODIUM,NA 141.0 mmol/L (136-145)
[2025-05-04 07:09] LABS: CHLORIDE,CL 103.0 mmol/L (98-107)
[2025-05-04 07:10] LABS: ESTIMATED GFR 91.0 mL/min (>=60); POTASSIUM,K 2.8 mmol/L (3.5-5.1)
[2025-05-04] MEDS: Tiotropium Bromide 4 GM Inhalation Spray (2.5mcg/1 dose; 10 doses) INH SCH (09:07)
[2025-05-04] MEDS: Potassium Chloride 10 MEQ Tab.ER PO SCH (12:10)
[2025-05-05] MEDS: VANCOmycin 1 GM/200 ML 1 GM in Premix Bag 1 BAG IV SCH (10:13)
[2025-05-06 06:49] LABS: BASOPHILS ABSOLUTE AUTO 0.0 x10^3/uL (0.0-0.2); BASOPHILS PERCENT AUTO 0.3 % (0.2-1.2); EOSINOPHILS ABSOLUTE AUTO 0.1 x10^3/uL (0.0-0.5); EOSINOPHILS PERCENT AUTO 0.7 % (0.0-4.0); IMMATURE GRAN ABSOLUTE AUTO 0.28 x10^3/uL (0.00-0.07); IMMATURE GRAN PERCENT AUTO 1.90 % (0.00-0.43); LYMPHOCYTES ABSOLUTE AUTO 4.3 x10^3/uL (1.0-4.8); LYMPHOCYTES PERCENT AUTO 29.2 % (25.0-50.0); MONOCYTES ABSOLUTE AUTO 1.1 x10^3/uL (0.0-0.8); MONOCYTES PERCENT AUTO 7.5 % (2.0-11.0); NEUTROPHILS ABSOLUTE AUTO 8.8 x10^3/uL (1.8-7.7); NEUTROPHILS PERCENT AUTO 60.4 % (50.0-80.0); PLATELET COUNT,PLT 414 x10^3/uL (130-400); RED BLOOD CELL COUNT 4.54 x10^6/uL (4.00-5.50); WHITE BLOOD CELL COUNT,WBC 14.6 x10^3/uL (4.0-10.0)
[2025-05-06 07:17] LABS: A/G RATIO 0.51; ALANINE AMINOTRANSFERASE,ALT 58.0 U/L (14-59); ASPARTATE AMNIOTRANSFERASE,AST 24.0 U/L (15-37); BILIRUBIN TOTAL 0.3 mg/dL (0.2-1.0); BLOOD UREA NITROGEN,BUN 17.0 mg/dL (7-18); CARBON DIOXIDE,CO2 28.0 mmol/L (21-32); CHLORIDE,CL 105.0 mmol/L (98-107); CREATININE 0.7 mg/dL (0.55-1.02); EST CRCL DRUG DOSING (CG) 50.65 mL/min; GLUCOSE RANDOM 84.0 mg/dL (70-99); POTASSIUM,K 3.5 mmol/L (3.5-5.1); PROTEIN TOTAL,TP 6.2 g/dL (6.4-8.2); SODIUM,NA 141.0 mmol/L (136-145)
[2025-05-06 07:18] LABS: ESTIMATED GFR 91.0 mL/min (>=60)
== END 2025-05-06 13:16 | disposition swing bed (61) | DRG 871 ==
LOC: VM.ED 12:21 → VM.MS 15:41
PROVIDERS: ADMIT Family Medicine; ATTEND Family Medicine
DX: A41.59 Other Gram-negative sepsis (principal); I50.33 Acute on chronic diastolic (congestive) heart failure; L03.115 Cellulitis of right lower limb; N30.01 Acute cystitis with hematuria; N17.9 Acute kidney failure, unspecified; J44.1 Chronic obstructive pulmonary disease with (acute) exacerbation; Z68.41 Body mass index [BMI] 40.0-44.9, adult; I11.0 Hypertensive heart disease with heart failure; Z96.653 Presence of artificial knee joint, bilateral; E66.813 Obesity, class 3; R53.81 Other malaise; I73.9 Peripheral vascular disease, unspecified; R09.02 Hypoxemia; E87.6 Hypokalemia; R65.20 Severe sepsis without septic shock; R79.89 Other specified abnormal findings of blood chemistry; F17.210 Nicotine dependence, cigarettes, uncomplicated; Z88.8 Allergy status to other drugs, medicaments and biological substances; Z91.048 Other nonmedicinal substance allergy status; Z91.041 Radiographic dye allergy status; Z79.82 Long term (current) use of aspirin; Z79.899 Other long term (current) drug therapy; Z79.52 Long term (current) use of systemic steroids
CPT/HCPCS: 36415; 71045; 71250; 80053; 80202; 81001; 82803; 83605; 83735; 83880; 85025; 85379; 87040; 87086; 87088; 87186; 92526-GN; 92610-GN; 94640; 94760; 96361; 96365; 97110-GP; 97116-GP; 97162-GP; 97165-GO; 97530-GP; 97535-GO; 99284; 99285-25; A9270-GY; J0692; J0696; J1938; J2270; J2543; J3373; J3375; J7050; J7120; J7512; Q3014

== ENCOUNTER 2025-05-06 09:16 | Inpatient (IN) | payer MEDICARE ==
[2025-05-06] MEDS ORDERED: Albuterol 0.083% 2.5 MG/3 ML Neb Soln NEB PRN (11:55)
[2025-05-06] MEDS ORDERED: Ondansetron 4 MG Tab.DIS PO PRN (11:55)
[2025-05-06] MEDS: Miconazole 2% Top Powder 45 GM Container TOP SCH (20:05)
[2025-05-06] MEDS: Sennosides/Docusate Sodium 50-8.6 MG Tab PO SCH (20:07)
[2025-05-06] MEDS: Menthol/Zinc Oxide Ointment 3.5 GM Tube TOP PRN (20:08)
[2025-05-07] MEDS: Pantoprazole 20 MG Tab, Delayed Release PO SCH (06:27)
[2025-05-07 06:50] LABS: BASOPHILS ABSOLUTE AUTO 0.0 x10^3/uL (0.0-0.2); BASOPHILS PERCENT AUTO 0.1 % (0.2-1.2); EOSINOPHILS ABSOLUTE AUTO 0.1 x10^3/uL (0.0-0.5); EOSINOPHILS PERCENT AUTO 0.6 % (0.0-4.0); IMMATURE GRAN ABSOLUTE AUTO 0.19 x10^3/uL (0.00-0.07); IMMATURE GRAN PERCENT AUTO 1.40 % (0.00-0.43); LYMPHOCYTES ABSOLUTE AUTO 4.4 x10^3/uL (1.0-4.8); LYMPHOCYTES PERCENT AUTO 31.6 % (25.0-50.0); MONOCYTES ABSOLUTE AUTO 0.8 x10^3/uL (0.0-0.8); MONOCYTES PERCENT AUTO 5.6 % (2.0-11.0); NEUTROPHILS ABSOLUTE AUTO 8.5 x10^3/uL (1.8-7.7); NEUTROPHILS PERCENT AUTO 60.7 % (50.0-80.0); PLATELET COUNT,PLT 400 x10^3/uL (130-400); RED BLOOD CELL COUNT 4.87 x10^6/uL (4.00-5.50); WHITE BLOOD CELL COUNT,WBC 14.0 x10^3/uL (4.0-10.0)
[2025-05-07 07:05] LABS: A/G RATIO 0.53; ALANINE AMINOTRANSFERASE,ALT 57.0 U/L (14-59); ASPARTATE AMNIOTRANSFERASE,AST 23.0 U/L (15-37); BILIRUBIN TOTAL 0.4 mg/dL (0.2-1.0); BLOOD UREA NITROGEN,BUN 16.0 mg/dL (7-18); CARBON DIOXIDE,CO2 32.0 mmol/L (21-32); CHLORIDE,CL 104.0 mmol/L (98-107); CREATININE 0.8 mg/dL (0.55-1.02); EST CRCL DRUG DOSING (CG) 44.31 mL/min; GLUCOSE RANDOM 98.0 mg/dL (70-99); POTASSIUM,K 3.3 mmol/L (3.5-5.1); PROTEIN TOTAL,TP 6.9 g/dL (6.4-8.2); SODIUM,NA 142.0 mmol/L (136-145)
[2025-05-07 07:06] LABS: ESTIMATED GFR 77.0 mL/min (>=60)
[2025-05-07] MEDS ORDERED: Tiotropium Bromide 4 GM Inhalation Spray (2.5mcg/1 dose; 10 doses) INH SCH (09:00)
[2025-05-07] MEDS: Tiotropium Bromide 4 GM Inhalation Spray (2.5mcg/1 dose; 10 doses) INH SCH (09:14)
[2025-05-11 08:18] LABS: A/G RATIO 0.48; ALANINE AMINOTRANSFERASE,ALT 64.0 U/L (14-59); ASPARTATE AMNIOTRANSFERASE,AST 48.0 U/L (15-37); BILIRUBIN TOTAL 0.6 mg/dL (0.2-1.0); BLOOD UREA NITROGEN,BUN 13.0 mg/dL (7-18); CARBON DIOXIDE,CO2 27.0 mmol/L (21-32); CHLORIDE,CL 102.0 mmol/L (98-107); CREATININE 0.9 mg/dL (0.55-1.02); EST CRCL DRUG DOSING (CG) 39.39 mL/min; GLUCOSE RANDOM 118.0 mg/dL (70-99); POTASSIUM,K 4.0 mmol/L (3.5-5.1); PROTEIN TOTAL,TP 7.1 g/dL (6.4-8.2); SODIUM,NA 137.0 mmol/L (136-145)
[2025-05-11 08:19] LABS: PLATELET COUNT,PLT 457.0 x10^3/uL (130-400); RED BLOOD CELL COUNT 4.56 x10^6/uL (4.00-5.50); WHITE BLOOD CELL COUNT,WBC 13.2 x10^3/uL (4.0-10.0)
[2025-05-11 08:27] LABS: ESTIMATED GFR 67.0 mL/min (>=60)
== END 2025-05-22 12:10 | disposition home health service (06) | DRG 948 ==
LOC: VM.MS 11:55
PROVIDERS: ADMIT Family Medicine; ATTEND Family Medicine
DX: R53.81 Other malaise (principal); I50.32 Chronic diastolic (congestive) heart failure; Z68.41 Body mass index [BMI] 40.0-44.9, adult; L03.115 Cellulitis of right lower limb; J44.9 Chronic obstructive pulmonary disease, unspecified; I11.0 Hypertensive heart disease with heart failure; Z96.649 Presence of unspecified artificial hip joint; Z96.659 Presence of unspecified artificial knee joint; F17.210 Nicotine dependence, cigarettes, uncomplicated; E66.813 Obesity, class 3; I73.9 Peripheral vascular disease, unspecified; M25.562 Pain in left knee; G89.29 Other chronic pain; Z79.51 Long term (current) use of inhaled steroids; Z79.82 Long term (current) use of aspirin; Z79.899 Other long term (current) drug therapy; Z88.8 Allergy status to other drugs, medicaments and biological substances
CPT/HCPCS: 36415; 80053; 85025; 85027; 93970; 94640; 97110-GP; 97116-GP; 97530-GO; 97530-GP; 97535-GO; A9270-GY; J1650; Q3014

== ENCOUNTER 2025-05-23 14:50 | Inpatient (IN) | payer MEDICARE, MEDICAID ==
[2025-05-23] MEDS ORDERED: Sodium Chloride 0.9% 10 ML Syringe FLUSH PRN (15:20)
[2025-05-23 15:43] LABS: BASOPHILS ABSOLUTE AUTO 0.0 x10^3/uL (0.0-0.2); BASOPHILS PERCENT AUTO 0.4 % (0.2-1.2); EOSINOPHILS ABSOLUTE AUTO 0.2 x10^3/uL (0.0-0.5); EOSINOPHILS PERCENT AUTO 2.3 % (0.0-4.0); IMMATURE GRAN ABSOLUTE AUTO 0.02 x10^3/uL (0.00-0.07); IMMATURE GRAN PERCENT AUTO 0.30 % (0.00-0.43); LYMPHOCYTES ABSOLUTE AUTO 2.3 x10^3/uL (1.0-4.8); LYMPHOCYTES PERCENT AUTO 29.5 % (25.0-50.0); MONOCYTES ABSOLUTE AUTO 0.6 x10^3/uL (0.0-0.8); MONOCYTES PERCENT AUTO 7.8 % (2.0-11.0); NEUTROPHILS ABSOLUTE AUTO 4.6 x10^3/uL (1.8-7.7); NEUTROPHILS PERCENT AUTO 59.7 % (50.0-80.0); PLATELET COUNT,PLT 342 x10^3/uL (130-400); RED BLOOD CELL COUNT 4.59 x10^6/uL (4.00-5.50); WHITE BLOOD CELL COUNT,WBC 7.7 x10^3/uL (4.0-10.0)
[2025-05-23 16:00] LABS: INR 1.0 (0.9-1.1); PTT,PARTIAL THROMBOPLSTIN TIME 30.0 SEC (23.5-33.2)
[2025-05-23 16:08] LABS: A/G RATIO 0.56; ALANINE AMINOTRANSFERASE,ALT 23.0 U/L (14-59); ASPARTATE AMNIOTRANSFERASE,AST 23.0 U/L (15-37); BILIRUBIN TOTAL 0.5 mg/dL (0.2-1.0); BLOOD UREA NITROGEN,BUN 18.0 mg/dL (7-18); CARBON DIOXIDE,CO2 26.0 mmol/L (21-32); CHLORIDE,CL 102.0 mmol/L (98-107); CREATINE KINASE,CK 18.0 U/L (26-192); CREATININE 1.3 mg/dL (0.55-1.02); EST CRCL DRUG DOSING (CG) 27.27 mL/min; ESTIMATED GFR 43.0 mL/min (>=60); GLUCOSE RANDOM 111.0 mg/dL (70-99); POTASSIUM,K 4.0 mmol/L (3.5-5.1); PRO B-TYPE NATRIUR PEPT,BNPPRO 229.0 pg/mL (<=125); PROTEIN TOTAL,TP 7.8 g/dL (6.4-8.2); SODIUM,NA 140.0 mmol/L (136-145)
[2025-05-23] MEDS ORDERED: Non-Formulary Medication 1 Each (Albuterol/Ipratropium [Combivent Respimat] 4 GM Inhaler) INH PRN (18:28)
[2025-05-23] MEDS ORDERED: Menthol 10%/Methyl Salicylate 15% 85 GM Tube TOP PRN (18:28)
[2025-05-23] MEDS ORDERED: Ondansetron 4 MG Tab.DIS PO PRN (18:28)
[2025-05-23] MEDS ORDERED: Menthol/Zinc Oxide Ointment 3.5 GM Tube TOP PRN (18:28)
[2025-05-23] MEDS: PREDNISOLONE 5 MG PO SCH (19:30)
[2025-05-23] MEDS: Miconazole 2% Top Powder 45 GM Container TOP SCH (20:25)
[2025-05-23] MEDS: Sennosides/Docusate Sodium 50-8.6 MG Tab PO SCH (20:26)
[2025-05-23 20:54] LABS: APPEARANCE,URINE TURBID (CLEAR); GLUCOSE,URINE NEGATIVE (NEGATIVE); OCCULT BLOOD,URINE MODERATE (NEGATIVE)
[2025-05-23 21:01] LABS: SQUAMOUS EPITHELIAL CELLS,UR MODERATE /HPF (NOT SEEN)
[2025-05-24 07:41] LABS: BASOPHILS ABSOLUTE AUTO 0.0 x10^3/uL (0.0-0.2); BASOPHILS PERCENT AUTO 0.4 % (0.2-1.2); EOSINOPHILS ABSOLUTE AUTO 0.3 x10^3/uL (0.0-0.5); EOSINOPHILS PERCENT AUTO 4.5 % (0.0-4.0); IMMATURE GRAN ABSOLUTE AUTO 0.00 x10^3/uL (0.00-0.07); IMMATURE GRAN PERCENT AUTO 0.00 % (0.00-0.43); LYMPHOCYTES ABSOLUTE AUTO 2.0 x10^3/uL (1.0-4.8); LYMPHOCYTES PERCENT AUTO 27.3 % (25.0-50.0); MONOCYTES ABSOLUTE AUTO 0.6 x10^3/uL (0.0-0.8); MONOCYTES PERCENT AUTO 7.8 % (2.0-11.0); NEUTROPHILS ABSOLUTE AUTO 4.3 x10^3/uL (1.8-7.7); NEUTROPHILS PERCENT AUTO 60.0 % (50.0-80.0); PLATELET COUNT,PLT 337 x10^3/uL (130-400); RED BLOOD CELL COUNT 4.35 x10^6/uL (4.00-5.50); WHITE BLOOD CELL COUNT,WBC 7.1 x10^3/uL (4.0-10.0)
[2025-05-24 07:57] LABS: BLOOD UREA NITROGEN,BUN 11.0 mg/dL (7-18); CARBON DIOXIDE,CO2 27.0 mmol/L (21-32); CHLORIDE,CL 105.0 mmol/L (98-107); CREATININE 0.8 mg/dL (0.55-1.02); EST CRCL DRUG DOSING (CG) 44.31 mL/min; GLUCOSE RANDOM 117.0 mg/dL (70-99); POTASSIUM,K 4.1 mmol/L (3.5-5.1); SODIUM,NA 140.0 mmol/L (136-145)
[2025-05-24 08:05] LABS: ESTIMATED GFR 77.0 mL/min (>=60)
[2025-05-24] MEDS ORDERED: Tiotropium Bromide 4 GM Inhalation Spray (2.5mcg/1 dose; 10 doses) INH SCH (09:00)
[2025-05-24] MEDS ORDERED: Sennosides/Docusate Sodium 50-8.6 MG Tab PO PRN (09:41)
[2025-05-24] MEDS: Albuterol 0.083% 2.5 MG/3 ML Neb Soln NEB PRN (11:29)
[2025-05-25 06:50] LABS: BLOOD UREA NITROGEN,BUN 9.0 mg/dL (7-18); CARBON DIOXIDE,CO2 27.0 mmol/L (21-32); CHLORIDE,CL 104.0 mmol/L (98-107); CREATININE 0.9 mg/dL (0.55-1.02); EST CRCL DRUG DOSING (CG) 39.39 mL/min; GLUCOSE RANDOM 104.0 mg/dL (70-99); POTASSIUM,K 4.2 mmol/L (3.5-5.1); SODIUM,NA 138.0 mmol/L (136-145)
[2025-05-25 06:52] LABS: ESTIMATED GFR 67.0 mL/min (>=60)
[2025-05-27 06:48] LABS: BASOPHILS ABSOLUTE AUTO 0.0 x10^3/uL (0.0-0.2); BASOPHILS PERCENT AUTO 0.5 % (0.2-1.2); EOSINOPHILS ABSOLUTE AUTO 0.4 x10^3/uL (0.0-0.5); EOSINOPHILS PERCENT AUTO 4.9 % (0.0-4.0); IMMATURE GRAN ABSOLUTE AUTO 0.01 x10^3/uL (0.00-0.07); IMMATURE GRAN PERCENT AUTO 0.10 % (0.00-0.43); LYMPHOCYTES ABSOLUTE AUTO 2.4 x10^3/uL (1.0-4.8); LYMPHOCYTES PERCENT AUTO 32.9 % (25.0-50.0); MONOCYTES ABSOLUTE AUTO 0.6 x10^3/uL (0.0-0.8); MONOCYTES PERCENT AUTO 8.4 % (2.0-11.0); NEUTROPHILS ABSOLUTE AUTO 3.9 x10^3/uL (1.8-7.7); NEUTROPHILS PERCENT AUTO 53.2 % (50.0-80.0); PLATELET COUNT,PLT 378 x10^3/uL (130-400); RED BLOOD CELL COUNT 5.00 x10^6/uL (4.00-5.50); WHITE BLOOD CELL COUNT,WBC 7.4 x10^3/uL (4.0-10.0)
[2025-05-27 07:09] LABS: BLOOD UREA NITROGEN,BUN 10.0 mg/dL (7-18); CARBON DIOXIDE,CO2 26.0 mmol/L (21-32); CHLORIDE,CL 102.0 mmol/L (98-107); CREATININE 1.1 mg/dL (0.55-1.02); EST CRCL DRUG DOSING (CG) 32.23 mL/min; ESTIMATED GFR 53.0 mL/min (>=60); GLUCOSE RANDOM 107.0 mg/dL (70-99); POTASSIUM,K 4.6 mmol/L (3.5-5.1); SODIUM,NA 136.0 mmol/L (136-145)
== END 2025-05-28 10:20 | DRG 683 ==
LOC: VM.ED 14:50 → VM.MS 16:28 → OBSVTOIN 05-25 11:29
PROVIDERS: ADMIT Internal Medicine; ATTEND Internal Medicine
DX: N17.9 Acute kidney failure, unspecified (principal); I10 Essential (primary) hypertension; E46 Unspecified protein-calorie malnutrition; Z91.041 Radiographic dye allergy status; I50.32 Chronic diastolic (congestive) heart failure; N39.0 Urinary tract infection, site not specified; L03.115 Cellulitis of right lower limb; Z68.42 Body mass index [BMI] 45.0-49.9, adult; Z68.41 Body mass index [BMI] 40.0-44.9, adult; R53.1 Weakness; E86.0 Dehydration; J44.9 Chronic obstructive pulmonary disease, unspecified; G89.29 Other chronic pain; M25.569 Pain in unspecified knee; E66.9 Obesity, unspecified; R53.81 Other malaise; I11.0 Hypertensive heart disease with heart failure; G70.00 Myasthenia gravis without (acute) exacerbation; Z79.82 Long term (current) use of aspirin; Z96.659 Presence of unspecified artificial knee joint; Z79.899 Other long term (current) drug therapy; Z88.8 Allergy status to other drugs, medicaments and biological substances; Z98.890 Other specified postprocedural states; Z90.49 Acquired absence of other specified parts of digestive tract
CPT/HCPCS: 36415; 71046; 80048; 80053; 81001; 82550; 82947; 83735; 83880; 84484; 85025; 85610; 85730; 87086; 87088; 87186; 93005; 93010; 94640; 94760; 97110-GO; 97161-GP; 97165-GO; 97168-GO; 99284; 99285; A9270-GY; J1650; J7030